=== PATIENT | male | born 1940 | race African-American/Black ===

== ENCOUNTER → 2016-09-11 | Outpatient (CLI) | payer MEDICARE, OTHER ==
[2016-09-11 14:27] LABS: ABSOLUTE BASOPHILS # (AUTO) 0.2 10^3/uL (0.0-0.2); ABSOLUTE EOSINOPHILS # (AUTO) 0.5 10^3/uL (0.0-0.6); ABSOLUTE LYMPHOCYTES (AUTO) 3.4 10^3/uL (0.5-4.7); ABSOLUTE NEUT (AUTO) 6.9 10^3/uL (1.7-8.2); BASOPHILS % (AUTO) 1.4 % (0-2); HEMATOCRIT 41.5 % (37.9-51.0); HEMOGLOBIN 13.6 g/dL (13.5-17.0); HGB HCT DIFFERENCE -0.7; LYMPHOCYTES % (AUTO) 28.3 % (13-45); MEAN CORPUSCULAR HEMOGLOBIN 29.3 pg (27.0-33.4); MEAN CORPUSCULAR HGB CONC 32.9 g/dL (32.0-36.0); MEAN CORPUSCULAR VOLUME 89 fl (80-97); MONOCYTES % (AUTO) 8.7 % (3-13); RED BLOOD COUNT 4.66 10^6/uL (4.35-5.55); RED CELL DISTRIBUTION WIDTH 15.1 % (11.5-14.0); SEGMENTED NEUTROPHILS % (AUTO) 57.6 % (42-78)
[2016-09-11 14:43] LABS: ALANINE AMINOTRANSFERASE 43 U/L (21-72); ALBUMIN 4.3 g/dL (3.5-5.0); ALKALINE PHOSPHATASE 96 U/L (38-126); AMYLASE 116 U/L (30-110); ANION GAP 14 (5-19); ASPARTATE AMINO TRANSFERASE 34 U/L (17-59); BILIRUBIN,TOTAL 0.7 mg/dL (0.2-1.3); BLOOD UREA NITROGEN 35 mg/dL (7-20); CALCIUM 9.7 mg/dL (8.4-10.2); CARBON DIOXIDE 25 mmol/L (22-30); CHLORIDE 102 mmol/L (98-107); CREATININE RESULT 2.11 mg/dL (0.52-1.25); GLUCOSE 109 mg/dL (75-110); LIPASE 164.5 U/L (23-300); POTASSIUM 4.5 mmol/L (3.6-5.0); SODIUM 140.5 mmol/L (137-145); TOTAL PROTEIN 7.3 g/dL (6.3-8.2)
== END ==
LOC: OD 13:40
PROVIDERS: ATTEND Specialist
DX: R10.9 Unspecified abdominal pain (principal); R11.2 Nausea with vomiting, unspecified; D50.9 Iron deficiency anemia, unspecified
CPT/HCPCS: 36415; 80053; 82150; 83690; 85025

== ENCOUNTER → 2016-09-11 | Outpatient (CLI) | payer MEDICARE, OTHER | LOC: OD 13:15 | PROVIDERS: ATTEND Specialist | DX: R10.9 Unspecified abdominal pain (principal) | CPT/HCPCS: 74022 ==

== ENCOUNTER → 2016-09-18 | Outpatient (CLI) | payer MEDICARE, OTHER ==
[2016-09-18 14:40] LABS: ABSOLUTE BASOPHILS # (AUTO) 0.1 10^3/uL (0.0-0.2); ABSOLUTE EOSINOPHILS # (AUTO) 0.2 10^3/uL (0.0-0.6); ABSOLUTE LYMPHOCYTES (AUTO) 1.8 10^3/uL (0.5-4.7); ABSOLUTE MONOCYTES (AUTO) 0.9 10^3/uL (0.1-1.4); ABSOLUTE NEUT (AUTO) 7.3 10^3/uL (1.7-8.2); BASOPHILS % (AUTO) 0.9 % (0-2); EOSINOPHILS % (AUTO) 2.3 % (0-6); HEMATOCRIT 42.6 % (37.9-51.0); HGB HCT DIFFERENCE -0.6; LYMPHOCYTES % (AUTO) 17.3 % (13-45); MEAN CORPUSCULAR HEMOGLOBIN 28.9 pg (27.0-33.4); MEAN CORPUSCULAR HGB CONC 32.8 g/dL (32.0-36.0); MEAN CORPUSCULAR VOLUME 88 fl (80-97); MONOCYTES % (AUTO) 8.6 % (3-13); RED BLOOD COUNT 4.84 10^6/uL (4.35-5.55); RED CELL DISTRIBUTION WIDTH 14.3 % (11.5-14.0); SEGMENTED NEUTROPHILS % (AUTO) 70.9 % (42-78); WHITE BLOOD COUNT 10.3 10^3/uL (4.0-10.5)
[2016-09-18 15:03] LABS: LIPASE 246.8 U/L (23-300)
== END ==
LOC: OD 13:23
PROVIDERS: ATTEND Specialist
DX: R10.9 Unspecified abdominal pain (principal); R53.83 Other fatigue; R74.0 Nonspecific elevation of levels of transaminase and lactic acid dehydrogenase [LDH]
CPT/HCPCS: 36415; 82150; 83690; 85025

== ENCOUNTER → 2016-09-20 | Outpatient (CLI) | payer MEDICARE, OTHER | LOC: RAD 07:18 | PROVIDERS: ATTEND Specialist | DX: R11.11 Vomiting without nausea (principal); R19.01 Right upper quadrant abdominal swelling, mass and lump | CPT/HCPCS: 74247 ==

== ENCOUNTER 2016-09-23 15:47 | Emergency (ER) | payer MEDICARE, OTHER ==
[2016-09-23 16:13] VITALS: BP 130/87
--- NOTE | 2016-09-23 16:19 | ER Document Report ---
ED Medical Screen (RME) - General Stated Complaint: FALL,LEFT MIDDLE FINGER PAIN Mode of Arrival: Ambulatory Information source: Patient Notes: 76 y/o M presents to ED c/o left 3rd finger pain s/p fall. Reports tripped and fell over three steps. States struck his head but denies loc. Reports initially noted deformity to finger but seems to have improved. Denies head or neck pain. I have greeted and performed a rapid initial assessment of this patient. A comprehensive ED assessment and evaluation of the patient, analysis of test results and completion of the medical decision making process will be conducted by additional ED providers. TRAVEL OUTSIDE OF THE [place] IN LAST 30 DAYS: No - Related Data Allergies/Adverse Reactions: No Known Allergies Allergy (Verified 09/23/16 16:14) Past Medical History - Past Medical History Cardiac Medical History: Reports: Hx Coronary Artery Disease, Hx Hypertension Denies: Hx Heart Attack Pulmonary Medical History: Denies: Hx Asthma, Hx Bronchitis, Hx COPD, Hx Pneumonia Neurological Medical History: Denies: Hx Cerebrovascular Accident, Hx Seizures GI Medical History: Reports: Hx Hiatal Hernia. Denies: Hx Hepatitis, Hx Ulcer - DIVERTICULITIS Musculoskeltal Medical History: Reports Hx Arthritis Infectious Medical History: Denies: Hx Hepatitis Past Surgical History: Reports: Hx Pacemaker - INSERTED ABT 5 MONTHS/ NOT WORKING LIKE . Denies: Hx Open Heart Surgery - Immunizations Hx Diphtheria, Pertussis, Tetanus Vaccination: Yes Physical Exam - Vital signs Vitals: Temp Pulse Resp BP Pulse Ox 97.9 F 108 H 18 130/87 H 97 09/23/16 16:10 09/23/16 16:10 09/23/16 16:10 09/23/16 16:10 09/23/16 16:10 - General General appearance: Appears well, Alert In distress: None - Neurological Neuro grossly intact: Yes Cognition: Normal Orientation: AAOx4 [place] Coma Scale Eye Opening: Spontaneous [place] Coma Scale Verbal: Oriented Tal Coma Scale Motor: Obeys Commands Tal Coma Scale Total: 15 Speech: Normal Motor strength normal: LUE, RUE, LLE, RLE Sensory: Normal Course - Vital Signs Vital signs: Temp Pulse Resp BP Pulse Ox 97.9 F 108 H 18 130/87 H 97 09/23/16 16:10 09/23/16 16:10 09/23/16 16:10 09/23/16 16:10 09/23/16 16:10
--- NOTE | 2016-09-23 17:49 | ER Document Report ---
ED Fall - General Mode of Arrival: Ambulatory Information source: Patient TRAVEL OUTSIDE OF THE [place] IN LAST 30 DAYS: No - HPI Patient complains to provider of: Fall and possible dislocated left third digit Occurred: Just prior to arrival Where: Home Context: Tripped Associated symptoms: Other - see above. denies: Lost consciousness Location of injury/pain: Other - see above - General Chief Complaint: Fall Stated Complaint: FALL,LEFT MIDDLE FINGER PAIN Notes: 76 year old male presents to the ED secondary to falling down 3 brick steps and landing on his right hand and forearm just prior to arrival. Patient states that he caught himself with his right arm, but did manage to hit the right aspect of his head when falling. Patient denies losing consciousness. Patient states that his left 3rd digit appeared to be dislocated, but was relocated on it's own. Patient is additionally complaining of abrasions to the right forearm and wrist and pain with swelling to the left third digit. Patient denies any neck pain. Patient's last tetanus shot was within the past 5 years. (LIONEL SHAW ) - Related data Allergies/Adverse Reactions: No Known Allergies Allergy (Verified 09/23/16 16:14) Past Medical History - General Information source: Patient - Social History Smoking Status: Never Smoker Chew tobacco use (# tins/day): No Frequency of alcohol use: None Drug Abuse: None Family History: Reviewed & Not Pertinent Patient has suicidal ideation: No Patient has homicidal ideation: No - Past Medical History Cardiac Medical History: Reports: Hx Coronary Artery Disease, Hx Hypertension GI Medical History: Reports: Hx Hiatal Hernia Musculoskeltal Medical History: Reports Hx Arthritis Past Surgical History: Reports: Hx Pacemaker - INSERTED ABT 5 MONTHS/ NOT WORKING LIKE - Immunizations Hx Diphtheria, Pertussis, Tetanus Vaccination: Yes Hx Pneumococcal Vaccination: 07/28/11 Review of Systems - Review of Systems Constitutional: No symptoms reported EENT: No symptoms reported Cardiovascular: No symptoms reported Respiratory: No symptoms reported Gastrointestinal: No symptoms reported Genitourinary: No symptoms reported Male Genitourinary: No symptoms reported Musculoskeletal: See HPI, Other - right third digit pain and swelling. denies: Neck pain Skin: See HPI, Other - abrasion to the right forearm and wrist Hematologic/Lymphatic: No symptoms reported Neurological/Psychological: No symptoms reported -: Yes All other systems reviewed and negative Physical Exam - General General appearance: Alert In distress: None - HEENT Head: Other - abrasion and contision to the right temporal region. No: Normocephalic, Atraumatic Eyes: Other - abrasion to the right lateral orbit. No: Normal Extraocular movements intact: Yes Pupils: PERRL - Respiratory Respiratory status: No respiratory distress Breath sounds: Normal - Cardiovascular Rhythm: Regular Heart sounds: Normal auscultation - Abdominal Inspection: Normal - Back Back: Normal, Nontender - Extremities General upper extremity: No: Normal inspection - see hand and elbow exam below General lower extremity: Normal inspection, Normal ROM Elbow: Abrasion - right elbow. No: Normal Hand: Abrasion - right hand, Other - Tenderness and swelling to the third left MCP joint. FROM with pain. Good perfusion and sensation distally.. No: Normal - Neurological Neuro grossly intact: Yes Cognition: Normal Orientation: AAOx4 [place] Coma Scale Eye Opening: Spontaneous [place] Coma Scale Verbal: Oriented [place] Coma Scale Motor: Obeys Commands Tal Coma Scale Total: 15 Speech: Normal - Psychological Associated symptoms: Normal affect, Normal mood - Skin Skin Temperature: Warm Skin Moisture: Dry Skin Color: Normal Skin irregularity: other - see extremity exam above - Vital signs Vitals: Temp Pulse Resp BP Pulse Ox 97.9 F 108 H 18 130/87 H 97 09/23/16 16:10 09/23/16 16:10 09/23/16 16:10 09/23/16 16:10 09/23/16 16:10 (TANIA LARIOS) Course - Re-evaluation Re-evalutation: 09/23/16 17:50 I personally performed the services described in the documentation, reviewed and edited the documentation which was dictated to my scribe in my presence, and it accurately records my words and actions. Patient presents emergency from status post mechanical trip and fall. Struck the right side of his head right elbow no loss of consciousness no headache neck pain blurred vision double vision chest pain elbow doesn't hurt he has a small abrasion over that area he says the left finger on the left third digit on the left hand initially appeared to be sideways like it was dislocated and when he opened his hand it appeared to pop back into place. He has pain over the MCP joint there is a CT the head is negative there's no fracture dislocation of the third digit. Full range of motion with normal X extension and flexion of the tendon. At this point in time patient will be placed into a splint he has adequate pain control home and follow primary care physician in 2- 3 days and discussed reasons for ED return sooner (TANIA LARIOS) - Vital Signs Vital signs: Temp Pulse Resp BP Pulse Ox 97.9 F 108 H 18 130/87 H 97 09/23/16 16:10 09/23/16 16:10 09/23/16 16:10 09/23/16 16:10 09/23/16 16:10 (TANIA LARIOS) (LIONEL SHAW) Discharge - Discharge Clinical Impression: sprained digit left third mcp joint, Abrasions of multiple sites Minor head injury Qualifiers: Encounter type: initial encounter Qualified Code(s): S00.90XA - Unspecified superficial injury of unspecified part of head, initial encounter Additional Instructions: SPRAIN: Your injury is a sprain. A sprain results from stretching or tearing of the ligaments, usually from a twisting injury. The ligaments will require time and protection in order to heal properly. Many sprains are quite disabling and should be taken seriously. The usual initial treatment of sprains is cold packs, elevation, and rest of the injured area. Your physician has assessed the seriousness of your ligament injury, and has outlined a treatment plan. Understand that this treatment may change, depending on how you progress. If a re-examination was recommended, it is important that you follow up as instructed. Call the doctor any time if there is severe pain, numbness, or loss of function in the injured area. SPLINT PRECAUTIONS: A splint has been placed. This will protect the area while healing begins. Your problem does NOT normally require a cast. It MUST, however, be held still! Keep the splint on ALL THE TIME until instructed to remove it by the doctor. As you begin to use the area, be careful. You shouldn't do anything which causes discomfort -- you may disturb the injury even with the splint in place. After the initial period of rest and elevation, if splint does not prevent pain when you move, come back. You may require placement of a different splint , or a cast. If there is unexpected severe pain, or numbness, discoloration, or swelling beyond the splint, you should return at once. If you feel that the splint has broken or become loose, come back. ICE & ELEVATION: Apply ice packs frequently against the painful area. Many different schedules are recommended, such as "20 minutes on, 20 minutes off" or "one hour ice, two hours rest." If you need to work, you may need to go longer between ice treatments. You should plan to have the area ice packed AT LEAST one- fourth of the time. The ice should be applied over the wrap, tape, or splint, or over a layer of cloth -- not directly against the skin. Some ice bags have a built-in cloth and can be put directly on the skin. Your injured part should be elevated as much as possible over the next 48 hours. Try to keep the injury above the level of the heart. Avoid use of the injured area. Elevation and rest will decrease the swelling. 15-adult 400 mg (2 tab) 600 mg (3 tab) FOLLOW-UP CARE: If you have been referred to a physician for follow-up care, call the physician s office for an appointment as you were instructed or within the next two days. If you experience worsening or a significant change in your symptoms, notify the physician immediately or return to the Emergency Department at any time for re-evaluation. Abrasions An abrasion is a scraping injury of the skin. Some scarring may result. The seriousness of an abrasion is not always obvious at first. Hidden tissue damage may be present and infection may occur despite proper care. Complete healing may take from ten days to as long as a month. The healing time depends on the depth of the abrasion, and on the amount of crushing of underlying tissues from the injury. Keep the wound and dressing clean. Do not shower or bathe the area until okayed by the doctor. If the dressing gets wet, remove it and blot the wound dry, then reapply a clean dressing. Dressings should be changed every day. Sunscreen should be used for six months after the skin is healed. If any signs of infection occur (swelling, redness, increasing tenderness, red streaks, profuse purulent drainage from the abrasion, tender lumps in the armpit or groin above the abrasion, or fever), see the doctor immediately. Head Injury Your child's examination shows no evidence of brain injury. The child can therefore be safely observed at home. Give clear liquids only for the first eight hours. Acetaminophen or ibuprofen can safely be given for pain. Follow the directions on the bottle. Do not give any medication that may alter her/his level of alertness. Limit activity for the first 24 hours -- bed rest is advisable at first. Several times during the first 24 hours, check the patient to see if the pupils are equal in size to each other, that the patient is easily arousable, and responds normally. Contact your doctor or go to the hospital if any of the following things occur: Persistent or projectile vomiting, a seizure, confusion , unequal pupil size, difficulty in arousing the patient, worsening or continued headache, or failure to improve as expected. Follow-up with your primary care physician in 2-3 days return for increasing worsening or new symptoms Scribe Documentation - Scribe Written by Siddhartha:: Siddhartha Sanders, 09/23/2016 [id number] acting as scribe for :: Augusto
== END 2016-09-23 18:03 | disposition home or self-care (01) ==
LOC: ER 15:47
DX: S63.653A Sprain of metacarpophalangeal joint of left middle finger, initial encounter (principal); S00.90XA Unspecified superficial injury of unspecified part of head, initial encounter; M79.645 Pain in left finger(s); W19.XXXA Unspecified fall, initial encounter
CPT/HCPCS: 70450; 99284

== ENCOUNTER → 2016-09-23 | Outpatient (CLI) | payer MEDICARE, OTHER | LOC: RAD 14:08 | PROVIDERS: ATTEND Internal Medicine Medical Oncology | DX: R93.5 Abnormal findings on diagnostic imaging of other abdominal regions, including retroperitoneum (principal); M48.04 Spinal stenosis, thoracic region; D72.828 Other elevated white blood cell count | CPT/HCPCS: 72128; 82565 ==

== ENCOUNTER 2016-10-17 09:32 | Day surgery (SDC) | payer MEDICARE, OTHER ==
[2016-10-17 10:11] LABS: HEMATOCRIT 41.4 % (37.9-51.0); HEMOGLOBIN 13.3 g/dL (13.5-17.0); HGB HCT DIFFERENCE -1.5; MEAN CORPUSCULAR HEMOGLOBIN 28.6 pg (27.0-33.4); MEAN CORPUSCULAR HGB CONC 32.1 g/dL (32.0-36.0); MEAN CORPUSCULAR VOLUME 89 fl (80-97); RED BLOOD COUNT 4.65 10^6/uL (4.35-5.55); RED CELL DISTRIBUTION WIDTH 13.8 % (11.5-14.0); WHITE BLOOD COUNT 11.3 10^3/uL (4.0-10.5)
[2016-10-17 10:21] LABS: PARTIAL THROMBOPLASTIN TIME 31.4 SEC (23.5-35.8)
[2016-10-17 10:31] LABS: BLOOD UREA NITROGEN 29 mg/dL (7-20); CREATININE RESULT 1.57 mg/dL (0.52-1.25)
[2016-10-17] MEDS ORDERED: MIDAZOLAM 2 MG/2 ML INJ ONE (12:29)
[2016-10-17] MEDS ORDERED: FENTANYL CITRATE INJ/PF 100 MCG/2 ML AMPUL ONE (12:30)
[2016-10-17 16:12] VITALS: BP 129/80
== END 2016-10-17 15:55 | disposition home or self-care (01) ==
LOC: RAD 09:32
PROVIDERS: ATTEND Internal Medicine Medical Oncology
PROC: 0KBF3ZX Excision of Right Trunk Muscle, Percutaneous Approach, Diagnostic (ICD-10-PCS; principal; 2016-10-17)
DX: R93.5 Abnormal findings on diagnostic imaging of other abdominal regions, including retroperitoneum (principal); Z79.01 Long term (current) use of anticoagulants
CPT/HCPCS: 36415; 84520; 82565; 85027; 85610; 85730; 88305 ×2; 71010; 77012; 20206; J2250; J3010

== ENCOUNTER 2016-11-02 15:42 | Emergency (ER) | payer MEDICARE, OTHER ==
--- NOTE | 2016-11-02 16:11 | ER Document Report ---
ED Dizziness/Weakness - General Time seen by provider: 16:15 Mode of Arrival: Wheelchair Information source: Patient TRAVEL OUTSIDE OF THE [place] IN LAST 30 DAYS: No - HPI Onset: Other - see HPI note <TRINITY READ - Last Filed: 11/02/16 16:52> <JAKE LUCIO - Last Filed: 11/02/16 20:05> - General Chief Complaint: Weakness Stated Complaint: WEAKNESS,CONFUSION Notes: Patient is a 76 year old male presenting to the emergency department for weakness. Patient states he has had increased weakness, difficulty ambulating, and dizziness for the last 5 days. Patient was at his pain management doctor today and was sent to the emergency department for "possible fluid on lungs." Patient states his breathing has been uneasy and he has moments where he almost stops breathing like sleep apnea. Patient is also out of his 25 mb Spironolactone which is prescribed by [facility]; patient states he misplaced the bottle of medication and has not been taking it for a week or so. Patient saw [facility] in July and has a follow up appointment in November; patient is being evaluated at [facility] to be a potential candidate for a left ventricular assist device. The patient has a pacemaker and defibrillator. Patient also has history of CHF. Patient's primary care physician is Dr. Hernandez. (TRINITY READ) - Related Data Allergies/Adverse Reactions: No Known Allergies Allergy (Verified 11/02/16 15:50) Past Medical History - General Information source: Patient - Social History Smoking Status: Current Every Day Smoker Family History: None Patient has suicidal ideation: No Patient has homicidal ideation: No - Past Medical History Cardiac Medical History: Reports: Hx Coronary Artery Disease, Hx Hypertension GI Medical History: Reports: Hx Diverticulitis, Hx Hiatal Hernia Musculoskeltal Medical History: Reports Hx Arthritis Past Surgical History: Reports: Hx Pacemaker - INSERTED ABT 5 MONTHS/ NOT WORKING LIKE - Immunizations Hx Diphtheria, Pertussis, Tetanus Vaccination: Yes Hx Pneumococcal Vaccination: 07/28/11 <TRINITY READ - Last Filed: 11/02/16 16:52> Review of Systems - Review of Systems Constitutional: No symptoms reported EENT: No symptoms reported Cardiovascular: No symptoms reported Respiratory: No symptoms reported Gastrointestinal: No symptoms reported Genitourinary: No symptoms reported Male Genitourinary: No symptoms reported Musculoskeletal: No symptoms reported Skin: No symptoms reported Hematologic/Lymphatic: No symptoms reported Neurological/Psychological: No symptoms reported -: Yes All other systems reviewed and negative <TRINITY READ - Last Filed: 11/02/16 16:52> Physical Exam - Vital signs Interpretation: Normal <TRINITY READ - Last Filed: 11/02/16 16:52> <JAKE LUCIO - Last Filed: 11/02/16 20:05> - Vital signs Vitals: Temp Pulse Resp BP Pulse Ox 98.2 F 81 20 124/72 95 11/02/16 15:48 11/02/16 15:48 11/02/16 15:48 11/02/16 15:48 11/02/16 15:48 - Notes Notes: GENERAL: Mildly somnolent, well-appearing, well-nourished and in no acute distress. HEAD: Atraumatic, normocephalic. EYES: Pupils equal round and reactive to light, extraocular movements intact, sclera anicteric, conjunctiva are normal. ENT: Nares patent. Moist mucous membranes. Patent airway. NECK: Normal range of motion, supple without lymphadenopathy. LUNGS: Rales at the bases, decreased air movement. HEART: Regular rate and rhythm, systolic murmur. ABDOMEN: Protuberant abdomen, ventral hernia, No guarding, no rebound. No masses appreciated. EXTREMITIES: Normal range of motion, no pitting or edema. NEUROLOGICAL: No focal neurological deficits. Moves all extremities spontaneously and on command. PSYCH: Normal affect. Normal mood. SKIN: Warm, Dry, normal turgor, no rashes or lesions noted. (TRINITY READ) Course <TRINITY READ - Last Filed: 11/02/16 16:52> - Laboratory Result Diagrams: 11/02/16 16:45 11/02/16 16:45 - Diagnostic Test Radiology reviewed: Image reviewed - Nothing acute, Reports reviewed - EKG Interpretation by Me EKG shows normal: Sinus rhythm Rate: Normal Rhythm: NSR <JAKE LUCIO - Last Filed: 11/02/16 20:05> - Re-evaluation Re-evalutation: 11/02/16 17:36 Patient's creatinine is actually improved now down to 1.83. His elevated white count from 2 months ago is normal now at 10.1. 11/02/16 19:58 I discussed all findings with the patient and family at his request. His numbers actually better than normal and there are no signs of CHF. There is probably some consideration for his excessive somnolence as he is not using his CPAP and has a history of obstructive sleep apnea. Family is comfortable taking the patient home. He does have follow-up at [facility] in the next month but I encouraged him to see his primary care doctor in the meantime. (JAKE LUCIO) - Vital Signs Vital signs: Temp Pulse Resp BP Pulse Ox 98.2 F 81 20 124/72 95 11/02/16 15:48 11/02/16 15:48 11/02/16 15:48 11/02/16 15:48 11/02/16 15:48 - Laboratory Laboratory results interpreted by me: 11/02/16 11/02/16 11/02/16 16:45 16:45 16:48 Hgb 12.6 L ABG pO2 BUN 24 H Creatinine 1.83 H Est GFR ( Amer) 44 L Est GFR (Non-Af Amer) 36 L Urine Protein 30 H 11/02/16 17:50 Hgb ABG pO2 71.2 L BUN Creatinine Est GFR ( Amer) Est GFR (Non-Af Amer) Urine Protein - EKG Interpretation by Me Additional EKG results interpreted by me: 11/02/16 19:58 Nonspecific T-wave abnormalities with some flattening and inversion more laterally (JAKE LUCIO) Discharge <TRINITY READ - Last Filed: 11/02/16 16:52> <JAKE LUCIO - Last Filed: 11/02/16 20:05> - Discharge Clinical Impression: Generalized weakness, Dyspnea Condition: Good Disposition: HOME, SELF-CARE Instructions: Weakness ([facility]) Additional Instructions: Call Friday to arrange close follow-up with her primary care physician. He need to discuss getting back on your CPAP as well, considering another mask or nasal pillows if needed. Return for worsening or concern. Prescriptions: Spironolactone 25 mg PO DAILY #30 tablet Referrals: RUTH SEGUNDO MD [Primary Care Provider] - Follow up in 3-5 days Scribe Attestation: 11/02/16 19:59 I personally performed the services described in the documentation, reviewed and edited the documentation which was dictated to the scribe in my presence, and it accurately records my words and actions. (JAKE LUCIO) Scribe Documentation - Scribe Written by Siddhartha:: Trinity Read 11/02/16 4:30 acting as scribe for :: Yin <TRINITY READ - Last Filed: 11/02/16 16:52>
[2016-11-02 17:17] LABS: ABSOLUTE BASOPHILS # (AUTO) 0.1 10^3/uL (0.0-0.2); ABSOLUTE EOSINOPHILS # (AUTO) 0.5 10^3/uL (0.0-0.6); ABSOLUTE LYMPHOCYTES (AUTO) 2.8 10^3/uL (0.5-4.7); ABSOLUTE NEUT (AUTO) 5.7 10^3/uL (1.7-8.2); BASOPHILS % (AUTO) 0.5 % (0-2); EOSINOPHILS % (AUTO) 4.6 % (0-6); HEMATOCRIT 38.4 % (37.9-51.0); HEMOGLOBIN 12.6 g/dL (13.5-17.0); HGB HCT DIFFERENCE -0.6; LYMPHOCYTES % (AUTO) 27.7 % (13-45); MEAN CORPUSCULAR HEMOGLOBIN 28.8 pg (27.0-33.4); MEAN CORPUSCULAR HGB CONC 32.8 g/dL (32.0-36.0); MEAN CORPUSCULAR VOLUME 88 fl (80-97); MONOCYTES % (AUTO) 10.3 % (3-13); RED BLOOD COUNT 4.38 10^6/uL (4.35-5.55); RED CELL DISTRIBUTION WIDTH 13.8 % (11.5-14.0); SEGMENTED NEUTROPHILS % (AUTO) 56.9 % (42-78); WHITE BLOOD COUNT 10.1 10^3/uL (4.0-10.5)
[2016-11-02 17:19] LABS: PROTHROMBIN TIME 12.3 SEC (11.4-15.4)
[2016-11-02 17:23] LABS: APPEARANCE,URINE SLIGHTLY-CLOUDY; BILIRUBIN,URINE NEGATIVE (NEGATIVE); GLUCOSE, URINE NEGATIVE (NEGATIVE); KETONES,URINE NEGATIVE (NEGATIVE); LEUKOCYTE ESTERASE,URINE NEGATIVE (NEGATIVE); NITRITE,URINE NEGATIVE (NEGATIVE); PROTEIN,URINE 30 mg/dL (NEGATIVE); URINE SPECIFIC GRAVITY 1.018; UROBILINOGEN,URINE NEGATIVE mg/dL (<2.0)
[2016-11-02 17:30] LABS: ALANINE AMINOTRANSFERASE 39 U/L (21-72); ALBUMIN 4.1 g/dL (3.5-5.0); ALKALINE PHOSPHATASE 103 U/L (38-126); ANION GAP 12 (5-19); ASPARTATE AMINO TRANSFERASE 41 U/L (17-59); BILIRUBIN,DIRECT 0.3 mg/dL (0.0-0.4); BILIRUBIN,TOTAL 0.5 mg/dL (0.2-1.3); BLOOD UREA NITROGEN 24 mg/dL (7-20); CALCIUM 9.3 mg/dL (8.4-10.2); CARBON DIOXIDE 26 mmol/L (22-30); CHLORIDE 105 mmol/L (98-107); CREATININE RESULT 1.83 mg/dL (0.52-1.25); GLUCOSE 104 mg/dL (75-110); MAGNESIUM 1.8 mg/dL (1.6-2.3); POTASSIUM 4.8 mmol/L (3.6-5.0); SODIUM 143.1 mmol/L (137-145)
[2016-11-02 17:42] LABS: TROPONIN I < 0.012 ng/mL
[2016-11-02 18:08] LABS: ARTERIAL BLOOD BASE EXCESS 0.3 mmol/L; ARTERIAL BLOOD O2 SATURATION 94.3 % (94-98)
[2016-11-02] MEDS ORDERED: SPIRONOLACTONE 25 MG TABLET PO ONE (19:57)
[2016-11-02 20:16] VITALS: BP 120/68
--- NOTE | 2016-11-02 20:46 | EKG REPORT ---
SEVERITY:- ABNORMAL ECG - SINUS RHYTHM NONSPECIFIC T ABNORMALITIES, LATERAL LEADS : Confirmed by: Rita Minaya 02-Nov-2016 20:45:40
== END 2016-11-02 20:15 | disposition home or self-care (01) ==
LOC: ER 15:42
DX: R53.1 Weakness (principal); R06.00 Dyspnea, unspecified; R41.0 Disorientation, unspecified; R42 Dizziness and giddiness; Z79.899 Other long term (current) drug therapy; F17.200 Nicotine dependence, unspecified, uncomplicated
CPT/HCPCS: 93005; 99285; 36415; 82803; 83735; 85025; 85610; 80053; 81001; 84484; 83880; 71020; 93010; 36600; A9270

== ENCOUNTER → 2017-05-27 | Outpatient (CLI) | payer MEDICARE, OTHER ==
[2017-05-27 11:30] LABS: HEMATOCRIT 41.9 % (37.9-51.0); HEMOGLOBIN 13.8 g/dL (13.5-17.0); HGB HCT DIFFERENCE -0.5; MEAN CORPUSCULAR HEMOGLOBIN 29.7 pg (27.0-33.4); MEAN CORPUSCULAR HGB CONC 32.9 g/dL (32.0-36.0); MEAN CORPUSCULAR VOLUME 90 fl (80-97); RED BLOOD COUNT 4.64 10^6/uL (4.35-5.55); RED CELL DISTRIBUTION WIDTH 14.3 % (11.5-14.0); WHITE BLOOD COUNT 13.8 10^3/uL (4.0-10.5)
[2017-05-27 11:32] LABS: APPEARANCE,URINE CLEAR; BILIRUBIN,URINE NEGATIVE (NEGATIVE); GLUCOSE, URINE NEGATIVE (NEGATIVE); KETONES,URINE NEGATIVE (NEGATIVE); LEUKOCYTE ESTERASE,URINE NEGATIVE (NEGATIVE); NITRITE,URINE NEGATIVE (NEGATIVE); PROTEIN,URINE NEGATIVE (NEGATIVE); URINE SPECIFIC GRAVITY 1.017
[2017-05-27 11:42] LABS: ALBUMIN 4.2 g/dL (3.5-5.0); ANION GAP 12 (5-19); BLOOD UREA NITROGEN 26 mg/dL (7-20); CARBON DIOXIDE 26 mmol/L (22-30); CHLORIDE 106 mmol/L (98-107); CREATININE RESULT 1.25 mg/dL (0.52-1.25); GLUCOSE 132 mg/dL (75-110); SODIUM 144.3 mmol/L (137-145); TOTAL PROTEIN 6.5 g/dL (6.3-8.2)
[2017-05-27 11:43] LABS: ALANINE AMINOTRANSFERASE 40 U/L (21-72); ALKALINE PHOSPHATASE 111 U/L (38-126); ASPARTATE AMINO TRANSFERASE 24 U/L (17-59); BILIRUBIN,DIRECT 0.4 mg/dL (0.0-0.4); BILIRUBIN,TOTAL 0.4 mg/dL (0.2-1.3); CALCIUM 9.5 mg/dL (8.4-10.2)
[2017-05-27 12:17] LABS: BASOPHILS % (MANUAL) 0 % (0-2); EOSINOPHILS % (MANUAL) 1 % (0-6); LYMPHOCYTES % (MANUAL) 20 % (13-45); PLATELET CLUMPS PRESENT; POLYCHROMASIA SLIGHT; TOTAL CELLS COUNTED 100; TOXIC VACUOLATION PRESENT
--- NOTE | 2017-05-27 13:45 | RADIOLOGY REPORT (SQ) ---
EXAM DESCRIPTION: U/S ABDOMEN COMPLETE W/O DOP COMPLETED DATE/TIME: 05/27/2017 1:21 pm REASON FOR STUDY: FATTY LIVER (K76.0), CKD III (N18.3) K76.0 FATTY (CHANGE OF) LIVER, NOT ELSEWHERE CLASSIFIED N18.3 CHRONIC KIDNEY DISEASE, STAGE 3 (MODERATE) COMPARISON: None. TECHNIQUE: Dynamic and static grayscale images acquired of the abdomen and recorded on PACS. Additio nal selected color Doppler and spectral images recorded. LIMITATIONS: None. FINDINGS: PANCREAS: Not visualized LIVER: Fatty infiltration. Hepatomegaly. 20.4 cm. No masses. LIVER VASCULATURE: Normal directional flow of the main portal vein and hepatic veins. GALLBLADDER: Surgically absent. ULTRASOUND-DETECTED RAMSEY'S SIGN: Negative. INTRAHEPATIC DUCTS AND COMMON DUCT: No abnormal dilatation INFERIOR VENA CAVA: Normal flow. AORTA: No aneurysm. RIGHT KIDNEY: Normal size. Normal echogenicity. No solid or suspicious masses. No hydronephros is. No calcifications. LEFT KIDNEY: Normal size. Normal echogenicity. No solid or suspicious masses. No hydronephrosi s. No calcifications. SPLEEN: Normal size. No solid masses. PERITONEAL AND PLEURAL SPACES: No ascites or effusions. OTHER: Complex fluid collection mid abdomen at the site of previous hernia repair. 14.1 x 16.1 x 10. 4 cm. IMPRESSION: Large complex fluid collection anterior abdominal wall at the site of previous hernia re pair. Hepatomegaly. Fatty infiltration of the liver. Status post cholecystectomy. Pancreas not vi sualized. TECHNICAL DOCUMENTATION: JOB ID: [id number] [employer]- All Rights Reserved
== END ==
LOC: RAD 10:14
PROVIDERS: ATTEND Internal Medicine Nephrology
DX: I12.9 Hypertensive chronic kidney disease with stage 1 through stage 4 chronic kidney disease, or unspecified chronic kidney disease (principal); N18.3 Chronic kidney disease, stage 3 (moderate); I50.9 Heart failure, unspecified; K76.0 Fatty (change of) liver, not elsewhere classified
CPT/HCPCS: 36415; 76700; 80053; 81001; 85025

== ENCOUNTER 2017-07-27 04:34 | Inpatient (IN) | payer MEDICARE, OTHER ==
--- NOTE | 2017-07-27 04:48 | ER Document Report ---
ED Respiratory Problem <JOSE NELSON - Last Filed: 07/27/17 07:35> - General TRAVEL OUTSIDE OF THE [place] IN LAST 30 DAYS: No <THEO OVERTON - Last Filed: 07/28/17 01:43> - General Chief Complaint: Shortness Of Breath Stated Complaint: RESPIRATORY DISTRESS Time Seen by Provider: 07/27/17 04:38 Notes: The patient is a 77-year-old male, past medical history CHF, current 2 pack per day smoker, presents with 1 month of shortness of breath and wheezing. He has also had cough with green sputum. Patient is taking his amoxicillin that was left over from her prior illness. When EMS arrived, he had diffuse wheezing and was given 5 mg of albuterol and 125 mg of Solu-Medrol with improvement in his shortness of breath and wheezing. Patient has an appointment with Gil[facility] in 2 weeks to discuss LVAD placement. Patient denies fevers, hemoptysis, chest pain, leg swelling, nausea, vomiting, fevers, back pain or abdominal pain. (THEO OVERTON) - Related Data Allergies/Adverse Reactions: No Known Allergies Allergy (Verified 11/02/16 15:50) Home Medications: Current Home Medications Alprazolam [Xanax 0.25 mg Tablet] 0.25 mg PO DAILYP PRN 07/27/17 [History] Amiodarone HCl [Cordarone 200 mg Tablet] 200 mg PO Q12 07/27/17 [History] Aspirin [Aspirin EC] 81 mg PO DAILY 07/27/17 [History] Azelastine HCl 1 spray NAREB Q12 07/27/17 [History] Desonide [Desowen] 1 applic TP BID 07/27/17 [History] Duloxetine HCl [Cymbalta] 60 mg PO DAILY 07/27/17 [History] Fluticasone Propionate [Flonase Nasal [place] 50 Mcg/[place] 16 gm] 1 spray NAREB DAILY 07/27/17 [History] Furosemide [Lasix 40 mg Tablet] 40 mg PO QAM 07/27/17 [History] Latanoprost [Xalatan 0.005% Oph Soln 2.5 ml] 1 drop OU QHS 07/27/17 [History] Metoprolol Succinate [Toprol XL 100 mg Tablet] 100 mg PO DAILY 07/27/17 [History ] Naloxegol Oxalate [Movantik 25 mg Tablet] 25 mg PO DAILY 07/27/17 [History] [place]-3 Fatty Acids/Fish Oil [Fish Oil 1,000 mg Capsule] 1 cap PO DAILY [History] Oxycodone HCl [Oxy-Ir 5 mg Tablet] 10 mg PO Q8HP PRN 07/27/17 [History] Oxycodone HCl [Oxycontin] 40 mg PO Q12HP PRN 07/27/17 [History] Pantoprazole Sodium [Protonix] 40 mg PO DAILY 07/27/17 [History] Pravastatin Sodium [Pravachol] 20 mg PO QHS 07/27/17 [History] Sildenafil Citrate [Viagra] 100 mg PO .ASDIR PRN 07/27/17 [History] Spironolactone [Aldactone 25 mg Tablet] 25 mg PO DAILY 07/27/17 [History] Testosterone [Fortesta] 6 sprays TD QAM 07/27/17 [History] Past Medical History - General Information source: Patient, Emergency Med Personnel - Social History Smoking Status: Current Every Day Smoker - 2 packs/day Family History: None - Past Medical History Cardiac Medical History: Reports: Hx Coronary Artery Disease, Hx Hypercholesterolemia, Hx Hypertension Denies: Hx Heart Attack Pulmonary Medical History: Denies: Hx Asthma, Hx Bronchitis, Hx COPD, Hx Pneumonia Neurological Medical History: Denies: Hx Cerebrovascular Accident, Hx Seizures Renal/ Medical History: Denies: Hx Peritoneal Dialysis GI Medical History: Reports: Hx Diverticulitis, Hx Hiatal Hernia. Denies: Hx Hepatitis, Hx Ulcer - DIVERTICULITIS Musculoskeltal Medical History: Reports Hx Arthritis Infectious Medical History: Denies: Hx Hepatitis Past Surgical History: Reports: Hx Pacemaker - INSERTED ABT 5 MONTHS/ NOT WORKING LIKE . Denies: Hx Open Heart Surgery - Immunizations Hx Diphtheria, Pertussis, Tetanus Vaccination: Yes Hx Pneumococcal Vaccination: 07/28/11 <THEO OVERTON - Last Filed: 07/28/17 01:43> Review of Systems <JOSE NELSON - Last Filed: 07/27/17 07:35> <THEO OVERTON - Last Filed: 07/28/17 01:43> - Review of Systems Notes: REVIEW OF SYSTEMS: CONSTITUTIONAL: -fevers, -chills EENT: -eye pain, -difficulty swallowing, -nasal congestion CARDIOVASCULAR:-chest pain, -syncope. RESPIRATORY: +cough, +SOB GASTROINTESTINAL: -abdominal pain, - nausea, -vomiting, -diarrhea GENITOURINARY: -dysuria, -hematuria MUSCULOSKELETAL: -back pain, -neck pain SKIN: -rash or skin lesions. HEMATOLOGIC: -easy bruising or bleeding. LYMPHATIC: -swollen, enlarged glands. NEUROLOGICAL: -altered mental status or loss of consciousness, -headache, - neurologic symptoms PSYCHIATRIC: -anxiety, -depression. ALL OTHER SYSTEMS REVIEWED AND NEGATIVE. (THEO OVERTON) Physical Exam <JOSE NELSON - Last Filed: 07/27/17 07:35> <THEO OVERTON - Last Filed: 07/28/17 01:43> - Vital signs Vitals: Resp Pulse Ox 22 H 81 L 07/27/17 04:38 07/27/17 04:38 - Notes Notes: PHYSICAL EXAMINATION: GENERAL: Well-appearing, well-nourished and in no acute distress. HEAD: Atraumatic, normocephalic. EYES: Pupils equal round and reactive to light, extraocular movements intact, sclera anicteric, conjunctiva are normal. ENT: nares patent, oropharynx clear without exudates. Moist mucous membranes. NECK: Normal range of motion, supple without lymphadenopathy LUNGS: Mild tachypnea. No wheezing, rales or crackles. HEART: Regular rate and rhythm without murmurs ABDOMEN: Soft, nontender, normoactive bowel sounds. No guarding, no rebound. No masses appreciated. EXTREMITIES: Normal range of motion, no pitting or edema. No cyanosis. NEUROLOGICAL: Cranial nerves grossly intact. Normal speech, normal gait. Normal sensory and motor exams. PSYCH: Normal mood, normal affect. SKIN: Warm, Dry, normal turgor, no rashes or lesions noted. (THEO OVERTON) Course - Laboratory Result Diagrams: 07/27/17 04:55 07/27/17 06:05 <JOSE NELSON - Last Filed: 07/27/17 07:35> - Laboratory Result Diagrams: 07/27/17 04:55 07/27/17 17:30 - Diagnostic Test Radiology reviewed: Image reviewed, Reports reviewed - EKG Interpretation by [facility] EKG shows normal: Sinus rhythm, [place], Intervals, QRS Complexes, ST-T Waves Rate: Normal <THEO OVERTON - Last Filed: 07/28/17 01:43> - Re-evaluation Re-evalutation: 07/27/17 07:35 Troponin is negative, rediscussed with Dr. Brown, aware that he is going to be admitted. (JOSE NELSON) Patient with diffuse wheezing and tachypnea when EMS arrived to the house. He received 2 albuterol treatments and Solu-Medrol prior to arrival with some improvement of his wheezing. His oxygen sats would dip down to the low 80s and he does not wear oxygen at home. Provided him with additional dose of duonebs and placed on 2 L nasal cannula with improvement of his oxygenation. Pt also with crackles in his left lower lobe and a infiltrate seen on x-ray. He was last hospitalized about 6 months ago and lives at home. CAP Abx started. Patient smokes 2 packs of cigarettes a day and has done this for multiple decades. No chest pain and EKG does not show any ischemic changes. Patient requires inpatient admission due to oxygen requirements and further evaluation and treatment of his shortness of breath and pneumonia. His PMD is Dr. Duggan. 07/27/17 05:[address] Baker. If first troponin is negative, will admit patient as Inpatient to [facility]. First CMP and troponin hemolyzed. Pt denies any chest pain and no ischemic changes on EKG. (THEO OVERTON) - Vital Signs Vital signs: Temp Pulse Resp BP Pulse Ox 97.7 F 70 24 H 118/68 95 07/28/17 00:00 07/27/17 22:00 07/28/17 01:24 07/27/17 22:00 07/28/17 01:24 - Laboratory Laboratory results interpreted by me: 07/27/17 04:55 WBC 17.2 H RBC 3.94 L Hgb 11.5 L Hct 35.4 L RDW 14.5 H Abs Neuts (Manual) 13.1 H Abs Basophils (Manual) 0.3 H - Diagnostic Test Radiology results interpreted by pr: CXR: Left basilar consolidation concerning for pneumonia. Continued radiographic follow-up to resolution recommended. (THEO OVERTON) Discharge <JOSE NELSON - Last Filed: 07/27/17 07:35> - Discharge Admitting Provider: Hospitalist - [facility] Admitted: Telemetry <THEO OVERTON - Last Filed: 07/28/17 01:43> - Discharge Clinical Impression: Hypoxia Pneumonia Qualifiers: Pneumonia type: due to unspecified organism Laterality: left Lung location: lower lobe of lung Qualified Code(s): J18.1 - Lobar pneumonia, unspecified organism Condition: Stable Disposition: ADMITTED INPATIENT
[2017-07-27] MEDS ORDERED: IPRATROPIUM/ALBUTEROL 0.5-2.5 MG/3 ML AMPUL NEB ONE (04:55)
--- NOTE | 2017-07-27 05:11 | RADIOLOGY REPORT (SQ) ---
EXAM DESCRIPTION: CHEST SINGLE VIEW CLINICAL HISTORY: SOB COMPARISON: 11/02/2016 FINDINGS: Single frontal view of the chest. Left-sided pacemaker. Postoperative change of the cervical spine. Atherosclerotic calcification aortic arch. Heart is not enlarged. Left basilar consolidation. No pneumothorax or pleural effusion. No displaced rib fractures identified. Upper abdominal soft tissues are unremarkable. IMPRESSION: 1. Left basilar consolidation concerning for pneumonia. Continued radiographic follow-up to resolution recommended.
[2017-07-27 05:13] LABS: VENOUS BLOOD BASE EXCESS -1.8 mmol/L; VENOUS BLOOD HCO3 22.8 mmol/L (20-32); VENOUS BLOOD PCO2 38.3 mmHg (35-63); VENOUS BLOOD PH 7.39 (7.30-7.42)
[2017-07-27 05:16] LABS: HEMATOCRIT 35.4 % (37.9-51.0); HEMOGLOBIN 11.5 g/dL (13.5-17.0); MEAN CORPUSCULAR HEMOGLOBIN 29.1 pg (27.0-33.4); MEAN CORPUSCULAR HGB CONC 32.4 g/dL (32.0-36.0); MEAN CORPUSCULAR VOLUME 90 fl (80-97); PLATELET COUNT 299 10^3/uL (150-450); RED BLOOD COUNT 3.94 10^6/uL (4.35-5.55); RED CELL DISTRIBUTION WIDTH 14.5 % (11.5-14.0); WHITE BLOOD COUNT 17.2 10^3/uL (4.0-10.5)
[2017-07-27] MEDS ORDERED: AZITHROMYCIN INJ 500 MG VIAL IV ONE (05:24)
[2017-07-27] MEDS ORDERED: CEFTRIAXONE 1 GM/D5W RTU 1 GM/50 ML RTUPB IV ONE (05:24)
[2017-07-27 05:43] LABS: ABSOLUTE LYMPHOCYTES# (MANUAL) 3.1 10^3/uL (0.5-4.7); ABSOLUTE MONOCYTES # (MANUAL) 0.7 10^3/uL (0.1-1.4); ABSOLUTE NEUTROPHILS# (MANUAL) 13.1 10^3/uL (1.7-8.2); BAND NEUTROPHILS % (MANUAL) 4 % (3-5); BASOPHILS % (MANUAL) 2 % (0-2); EOSINOPHILS % (MANUAL) 0 % (0-6); LYMPHOCYTES % (MANUAL) 17 % (13-45); MONOCYTES % (MANUAL) 4 % (3-13); NUCLEATED RED BLOOD CELLS 1 /100 WBC (0); SEGMENTED NEUTROPHILS % (MAN) 72 % (42-78); TOTAL CELLS COUNTED 100
[2017-07-27 05:46] LABS: ANISOCYTOSIS SLIGHT; OVALOCYTES SLIGHT; POIKILOCYTOSIS SLIGHT; POLYCHROMASIA SLIGHT; TOXIC GRANULATION 2+; TOXIC VACUOLATION PRESENT
[2017-07-27 05:47] LABS: PLATELET CLUMPS PRESENT; PLATELET COMMENT ADEQUATE; PLATELET LARGE PRESENT
[2017-07-27] MEDS ORDERED: ACETAMINOPHEN 325 MG TABLET PO PRN (06:26)
[2017-07-27] MEDS ORDERED: LEVALBUTEROL HCL NEB 1.25 MG/3 ML AMPUL NEB PRN (06:26)
[2017-07-27 06:46] LABS: ALANINE AMINOTRANSFERASE 38 U/L (21-72); ALBUMIN 3.8 g/dL (3.5-5.0); ALKALINE PHOSPHATASE 80 U/L (38-126); ANION GAP 15 (5-19); ASPARTATE AMINO TRANSFERASE 34 U/L (17-59); BILIRUBIN,DIRECT 0.5 mg/dL (0.0-0.4); BLOOD UREA NITROGEN 27 mg/dL (7-20); CALCIUM 9.6 mg/dL (8.4-10.2); CARBON DIOXIDE 21 mmol/L (22-30); CHLORIDE 102 mmol/L (98-107); CREATINE KINASE 39 U/L (55-170); GLUCOSE 120 mg/dL (75-110); POTASSIUM 5.7 mmol/L (3.6-5.0); SODIUM 137.5 mmol/L (137-145); TOTAL PROTEIN 6.5 g/dL (6.3-8.2)
[2017-07-27 06:56] LABS: TROPONIN I 0.026 ng/mL
[2017-07-27] MEDS ORDERED: LANSOPRAZOLE 30 MG TAB.RAP.DR PO ONE (07:00)
--- NOTE | 2017-07-27 07:43 | PDOC H&P ---
History of Present Illness Admission Date/PCP: 07/27/17 05:55 RUTH SEGUNDO MD History of Present Illness: TESS GASTON is a 77 year old male presents with 2 week history of wheezing, cough productive of light yellow sputum, subjective chills, rhinorrhea , nause and vomiting. Patient is found to have left lower lobe pneumonia. Daughters present at bedside report he is to have cardiac cath at [facility] next week and evaluation for LVAD. Patient does not know medications and did not bring them. Due to emergent nature of condition will be admitted without full reconciliation. Past Medical History Cardiac Medical History: Reports: Congestive Heart Failure, Coronary Artery Disease, Myocardial Infarction, Hyperlipidema, Hypertension Pulmonary Medical History: Reports: Chronic Obstructive Pulmonary Disease (COPD) Denies: Asthma, Bronchitis, Pneumonia Neurological Medical History: Denies: Seizures GI Medical History: Reports: Diverticulitis, Gastroesophageal Reflux Disease, Hiatal Hernia Denies: Hepatitis Musculoskeltal Medical History: Reports: Arthritis Psychiatric Medical History: Reports: Tobacco Dependency Hematology: Denies: Anemia, Sickle Cell Disease Past Surgical History Past Surgical History: Reports: Cholecystectomy, Internal Defibrillator, Knee Replacement, Orthopedic Surgery, Pacemaker - INSERTED ABT 5 MONTHS/ NOT WORKING LIKE , Tonsillectomy, Other - partial colectomy Social History Smoking Status: Current Every Day Smoker - 2 packs/day Cigarettes Packs Per Day: 2 Frequency of Alcohol Use: None Hx Recreational Drug Use: No Hx Prescription Drug Abuse: No - Advance Directive Resuscitation Status: Do Not Resuscitate Surrogate healthcare decision maker:: Gaby daughter [phone] Family History Family History: COPD, DM Parental Family History Reviewed: Yes Children Family History Reviewed: Yes Sibling(s) Family History Reviewed.: Yes Medication/Allergy Home Medications: Aspirin 81 mg PO DAILY 03/01/13 Docusate Sodium [Colace 100 mg Capsule] 100 mg PO QHS 03/01/13 Esomeprazole Magnesium [Nexium] 40 mg PO DAILY 03/01/13 Fluticasone Propionate [Flonase Nasal [place] 50 Mcg/[place] 16 gm] 2 spray NASL DAILY 03/01/13 Metoprolol Succinate [Toprol XL 25 mg Tablet] 50 mg PO DAILY 03/01/13 Zolpidem Tartrate [Ambien 10 mg Tablet] 1 tab PO HSP PRN 03/01/13 Desonide [Desowen] 60 gm TP BID 05/17/16 Duloxetine HCl 60 mg PO DAILY 05/17/16 E Qcomplete Multi Vitamin 1 tab PO DAILY 05/17/16 Furosemide [Lasix 40 mg Tablet] 40 mg PO BID 05/17/16 Gabapentin 200 mg PO QHS 05/17/16 Guaifenesin [Mucinex] 1,200 mg PO BID 05/17/16 Morphine Sulfate [Morphine Ir 15 Mg Tablet] 15 mg PO BID 05/17/16 Naloxegol Oxalate [Movantik 25 mg Tablet] 25 mg PO DAILY 05/17/16 [place]-3 Fatty Acids [Fish Oil] 1,000 mg PO DAILY 05/17/16 Oxycodone HCl [Oxycontin Sr 40 mg Tablet] 40 mg PO Q12 05/17/16 Pravastatin Sodium 20 mg PO DAILY 05/17/16 Testosterone [Fortesta] 10 mg TD DAILY 05/17/16 Spironolactone 25 mg PO DAILY #30 tablet 11/02/16 Allergies/Adverse Reactions: No Known Allergies Allergy (Verified 11/02/16 15:50) Review of Systems Constitutional: PRESENT: chills, fatigue. ABSENT: fever(s), headache(s), weight gain, weight loss Eyes: ABSENT: visual disturbances Ears: ABSENT: hearing changes Cardiovascular: PRESENT: dyspnea on exertion, orthropnea. ABSENT: chest pain, edema, palpitations Respiratory: PRESENT: cough, dyspnea, sputum. ABSENT: hemoptysis Gastrointestinal: PRESENT: constipation, nausea, vomiting. ABSENT: abdominal pain, diarrhea, hematemesis, hematochezia, melena Genitourinary: ABSENT: dysuria, hematuria Musculoskeletal: ABSENT: joint swelling Integumentary: ABSENT: rash, wounds Neurological: ABSENT: abnormal gait, abnormal speech, confusion, dizziness, focal weakness, syncope Psychiatric: ABSENT: anxiety, depression, homidical ideation, suicidal ideation Endocrine: ABSENT: cold intolerance, heat intolerance, polydipsia, polyuria Hematologic/Lymphatic: ABSENT: easy bleeding, easy bruising Physical Exam Vital Signs: Temp Pulse Resp BP Pulse Ox 98.7 F 20 125/61 88 L 07/27/17 04:59 07/27/17 05:01 07/27/17 05:01 07/27/17 05:01 General appearance: PRESENT: mild distress, well-developed, well-nourished Head exam: PRESENT: atraumatic, normocephalic Eye exam: PRESENT: conjunctiva pink, EOMI, PERRLA, scleral icterus. ABSENT: conjunctival injection Ear exam: PRESENT: normal external ear exam Mouth exam: PRESENT: dry mucosa, tongue midline Neck exam: ABSENT: JVD, lymphadenopathy, thyromegaly, tracheal deviation Respiratory exam: PRESENT: accessory muscle use, prolonged expiratory phas, rhonchi, symmetrical, tachypnea, unlabored, wheezes, other - gynecomastia. ABSENT: rales, stridor Cardiovascular exam: PRESENT: RRR, +S1, +S2, systolic murmur. ABSENT: diastolic murmur, rubs Vascular exam: PRESENT: normal capillary refill GI/Abdominal exam: PRESENT: normal bowel sounds, soft. ABSENT: distended, firm , guarding, mass, organolmegaly, rebound, rigid, tenderness Rectal exam: PRESENT: deferred Extremities exam: PRESENT: clubbing, full ROM. ABSENT: calf tenderness, pedal edema Neurological exam: PRESENT: alert, awake, oriented to person, oriented to place , oriented to time, oriented to situation, CN II-XII grossly intact. ABSENT: motor sensory deficit Psychiatric exam: PRESENT: depressed, flat affect. ABSENT: homicidal ideation, suicidal ideation Skin exam: PRESENT: dry, intact, warm. ABSENT: cyanosis Results Laboratory Results: 07/27/17 07/27/17 07/27/17 04:55 04:55 06:05 WBC 17.2 H Hgb 11.5 L Plt Count 299 VBG pH 7.39 Potassium 5.7 H BUN 27 H Creatinine 1.69 H Glucose 120 H Direct Bilirubin 0.5 H Albumin 3.8 Impressions: Chest X-Ray 07/27/17 04:38 IMPRESSION: 1. Left basilar consolidation concerning for pneumonia. Continued radiographic follow-up to resolution recommended. Assessment & Plan - Diagnosis (1) Pneumonia Qualifiers: Pneumonia type: due to unspecified organism Laterality: left Lung location: lower lobe of lung Qualified Code(s): J18.1 - Lobar pneumonia, unspecified organism Is this a current diagnosis for this admission?: Yes Plan: ROcephin and azithromycin for CAP nebulized treatments sputum culture (2) Acute hypoxemic respiratory failure Is this a current diagnosis for this admission?: Yes Plan: o2 to maintain saturation between 88-92 (3) COPD (chronic obstructive pulmonary disease) Qualifiers: Emphysema type: unspecified Is this a current diagnosis for this admission?: Yes Plan: Solumedrol and scheduled nebs (4) Sepsis Qualifiers: Sepsis type: sepsis due to unspecified organism Qualified Code(s): A41.9 - Sepsis, unspecified organism Is this a current diagnosis for this admission?: Yes Plan: No fluid bolus 2/2 systolic CHF Maintain MAP >65 Abx for CAP (5) Chronic systolic CHF (congestive heart failure) Is this a current diagnosis for this admission?: Yes Plan: Continue home medications. Patient reports his AICD pacemaker doesn't work (6) HTN (hypertension) Is this a current diagnosis for this admission?: Yes (7) Chronic back pain Is this a current diagnosis for this admission?: Yes (8) NAFLD (nonalcoholic fatty liver disease) Is this a current diagnosis for this admission?: Yes (9) Chronic use of opiate for therapeutic purpose Is this a current diagnosis for this admission?: Yes Plan: Continue home dose once confirmed (10) Tobacco abuse Is this a current diagnosis for this admission?: Yes Plan: Encourage cessation, nicotine patch - Time Time Spent: 30 to 50 Minutes Medications reviewed and adjusted accordingly: Yes Anticipated discharge: Home - Inpatient Certification Based on my medical assessment, after consideration of the patient's comorbidities, presenting symptoms, or acuity I expect that the services needed warrant INPATIENT care.: Yes I certify that my determination is in accordance with my understanding of Medicare's requirements for reasonable and necessary INPATIENT services [42 CFR 412.3e].: Yes Medical Necessity: Need for Nebulizer Therapy and Monitoring of Response, Need for IV Antibiotics Post Hospital Care: D/C Senior Air Director Documentation
[2017-07-27] MEDS: LEVALBUTEROL HCL NEB 0.63 MG/3 ML AMPUL NEB SCH ×2 (08:55→12:04)
[2017-07-27] MEDS: IPRATROPIUM BROMIDE 0.02% NEB 0.5 MG/2.5 ML AMPUL NEB SCH ×2 (08:55→12:04)
[2017-07-27] MEDS ORDERED: CEFTRIAXONE 1 GM/D5W RTU 1 GM/50 ML RTUPB IV SCH (10:00)
[2017-07-27] MEDS ORDERED: (PENDING PHARMACY ID) (Duloxetine Hcl [Duloxetine Hcl] 60 MG) PO SCH (10:00)
[2017-07-27] MEDS ORDERED: FAMOTIDINE 20 MG TABLET PO SCH (10:00)
[2017-07-27] MEDS ORDERED: SPIRONOLACTONE 25 MG TABLET PO SCH (10:00)
[2017-07-27] MEDS ORDERED: AZITHROMYCIN 500 MG in DEXTROSE 5%-WATER 250 ML IV SCH (10:00)
[2017-07-27] MEDS: GUAIFENESIN 600 MG TABLET.SA PO SCH ×2 (11:38→22:50)
[2017-07-27] MEDS: DULOXETINE HCL 30 MG CAPSULE.DR PO SCH (11:39)
[2017-07-27] MEDS: FLUTICASONE NASAL SPRAY 50 MCG/SPRY 120 SPRAY/16 GM NASL SCH (11:39)
[2017-07-27] MEDS: ASPIRIN 81 MG TABLET, CHEWABLE PO SCH (11:40)
[2017-07-27] MEDS: DOCUSATE SODIUM 100 MG CAPSULE PO SCH ×2 (11:40→18:39)
[2017-07-27] MEDS: NICOTINE 21 MG/24 HR PATCH.TD24 TD SCH (11:41)
[2017-07-27] MEDS: METOPROLOL SUCCINATE 25 MG TAB.SR.24H PO SCH (11:46)
--- NOTE | 2017-07-27 12:38 | EKG REPORT ---
SEVERITY:- ABNORMAL ECG - SINUS RHYTHM SUPRAVENTRICULAR BIGEMINY : Confirmed by: Opal Lopez MD 27-Jul-2017 12:37:11
[2017-07-27] MEDS ORDERED: METHYLPREDNISOLONE INJ 40 MG/1 ML SDV IV SCH (14:00)
[2017-07-27] MEDS ORDERED: METHYLPREDNISOLONE INJ 125 MG/2 ML SDV IV SCH (14:00)
[2017-07-27] MEDS: HEPARIN SOD (PORCINE) 5,000 UNIT/ML 1 ML SYRINGE SUBCUT SCH ×2 (15:12→22:50)
[2017-07-27] MEDS ORDERED: SODIUM POLYSTYRENE SULFONATE 15 GM/60 ML PO ONE (15:49)
[2017-07-27 18:14] LABS: ANION GAP 11 (5-19); BLOOD UREA NITROGEN 34 mg/dL (7-20); CALCIUM 9.6 mg/dL (8.4-10.2); CARBON DIOXIDE 28 mmol/L (22-30); CHLORIDE 99 mmol/L (98-107); GLUCOSE 180 mg/dL (75-110); SODIUM 138.2 mmol/L (137-145)
[2017-07-27 18:32] LABS: ARTERIAL BLOOD BASE EXCESS 0.7 mmol/L; ARTERIAL BLOOD FIO2 50%; ARTERIAL BLOOD H2CO3 1.08 mmol/L (1.05-1.35); ARTERIAL BLOOD HCO3 24.4 mmol/L (20-26); ARTERIAL BLOOD O2 SATURATION 95.7 % (94-98); ARTERIAL BLOOD PCO2 35.8 mmHg (35-45); ARTERIAL BLOOD PH 7.45 (7.35-7.45); ARTERIAL BLOOD PO2 75.2 mmHg (80-100); ARTERIAL BLOOD TOTAL CO2 25.5 mmol/L (23-27)
[2017-07-27 18:34] LABS: POTASSIUM 4.6 mmol/L (3.6-5.0)
[2017-07-27] MEDS: PIPERACILLIN SODIUM/TAZOBACTAM 3.375 GM in NORMAL SALINE 100 ML IV SCH ×2 (18:39→23:03)
--- NOTE | 2017-07-27 18:54 | Progress Note ---
Provider Note Provider Note: Patient was evaluated upon arrival to the unit. Accordingly had been experiencing shortness of breath for a couple of days. Also had been having productive cough. He states that he quit smoking but went back after experiencing a weight gain from 172 to 276. Patient states that he feels better when compared to initially seen in emergency room. At the time of evaluation patient was accompanied by family members who agreed with his assertion of him feeling better. We opted to keep patient on same unit as he was deemed to be improved and stable. Nurse notified around 1700 that patient status has changed and that he had been diaphoretic off and on. She had checked his blood sugar and was 176. Nurse was notified that at that moment the author was pursuing an admission in emergency room. requested for patient obe placed on Bipap. Patient was then seen and overall was less talkative and on examination demonstrated scattered crackles with adequate movement of air. Family concerns were addressed and appeared to understand what was conveyed to them. Ordered troponin, BMP and ABG (results were reviewed at the time of this note). Orders were placed to transfer to [facility].
[2017-07-27] MEDS: IPRATROPIUM/ALBUTEROL 0.5-2.5 MG/3 ML AMPUL NEB SCH (19:53)
[2017-07-27] MEDS: METHYLPREDNISOLONE INJ 125 MG/2 ML SDV IV SCH (20:06)
[2017-07-27] MEDS: GABAPENTIN 100 MG CAPSULE PO SCH (22:50)
[2017-07-28] MEDS: METHYLPREDNISOLONE INJ 125 MG/2 ML SDV IV SCH (02:09)
[2017-07-28] MEDS: PIPERACILLIN SODIUM/TAZOBACTAM 3.375 GM in NORMAL SALINE 100 ML IV SCH ×4 (05:00→23:35)
[2017-07-28] MEDS: LANSOPRAZOLE 30 MG TAB.RAP.DR PO SCH (05:00)
[2017-07-28] MEDS: HEPARIN SOD (PORCINE) 5,000 UNIT/ML 1 ML SYRINGE SUBCUT SCH ×3 (05:01→21:40)
[2017-07-28 06:37] LABS: HEMOGLOBIN 10.6 g/dL (13.5-17.0); MEAN CORPUSCULAR HEMOGLOBIN 29.1 pg (27.0-33.4); MEAN CORPUSCULAR HGB CONC 33.2 g/dL (32.0-36.0); MEAN CORPUSCULAR VOLUME 88 fl (80-97); PLATELET COUNT 314 10^3/uL (150-450); RED BLOOD COUNT 3.65 10^6/uL (4.35-5.55); RED CELL DISTRIBUTION WIDTH 14.5 % (11.5-14.0)
[2017-07-28 06:53] LABS: ANION GAP 13 (5-19); BLOOD UREA NITROGEN 34 mg/dL (7-20); CALCIUM 9.6 mg/dL (8.4-10.2); CARBON DIOXIDE 25 mmol/L (22-30); CHLORIDE 103 mmol/L (98-107); GLUCOSE 128 mg/dL (75-110); SODIUM 140.7 mmol/L (137-145)
[2017-07-28 06:57] LABS: ABSOLUTE LYMPHOCYTES# (MANUAL) 1.8 10^3/uL (0.5-4.7); ABSOLUTE MONOCYTES # (MANUAL) 1.2 10^3/uL (0.1-1.4); BAND NEUTROPHILS % (MANUAL) 4 % (3-5); BASOPHILS % (MANUAL) 0 % (0-2); EOSINOPHILS % (MANUAL) 0 % (0-6); LYMPHOCYTES % (MANUAL) 9 % (13-45); MONOCYTES % (MANUAL) 6 % (3-13); SEGMENTED NEUTROPHILS % (MAN) 81 % (42-78); TOTAL CELLS COUNTED 100
[2017-07-28 06:59] LABS: ANISOCYTOSIS SLIGHT; BURR CELLS SLIGHT; OVALOCYTES SLIGHT; PLATELET COMMENT ADEQUATE; POIKILOCYTOSIS SLIGHT; POLYCHROMASIA SLIGHT; TEAR DROP CELLS SLIGHT; TOXIC GRANULATION 1+
[2017-07-28] MEDS: IPRATROPIUM/ALBUTEROL 0.5-2.5 MG/3 ML AMPUL NEB SCH ×3 (08:38→21:04)
[2017-07-28] MEDS: ASPIRIN 81 MG TABLET, CHEWABLE PO SCH (09:22)
[2017-07-28] MEDS: TAMSULOSIN HCL 0.4 MG CAP.SR.24H PO SCH (09:23)
[2017-07-28] MEDS: METOPROLOL SUCCINATE 25 MG TAB.SR.24H PO SCH (09:23)
[2017-07-28] MEDS: GUAIFENESIN 600 MG TABLET.SA PO SCH ×2 (09:23→21:40)
[2017-07-28] MEDS: DOCUSATE SODIUM 100 MG CAPSULE PO SCH ×2 (09:23→18:16)
[2017-07-28] MEDS: METHYLPREDNISOLONE INJ 40 MG/1 ML SDV IV SCH ×2 (09:24→21:40)
[2017-07-28] MEDS: NICOTINE 21 MG/24 HR PATCH.TD24 TD SCH (09:24)
[2017-07-28] MEDS: DULOXETINE HCL 30 MG CAPSULE.DR PO SCH (09:24)
[2017-07-28] MEDS: OXYCODONE HCL IR 5 MG TABLET PO PRN ×2 (09:30→21:40)
[2017-07-28] MEDS: FLUTICASONE/SALMETEROL DISKUS 250-50 MCG/DOSE IH SCH ×2 (09:31→21:40)
[2017-07-28] MEDS: FLUTICASONE NASAL SPRAY 50 MCG/SPRY 120 SPRAY/16 GM NASL SCH (09:31)
[2017-07-28] MEDS ORDERED: METHYLPREDNISOLONE INJ 125 MG/2 ML SDV IV SCH (10:00)
--- NOTE | 2017-07-28 12:46 | PDOC PROGRESS REPORT ---
Subjective Progress Note for:: 07/28/17 Subjective:: Feels better and was wondering when he could eat. Reason For Visit: SEPSIS,PNEUMONIA,COPD EXACERBATION Physical Exam Vital Signs: Temp Pulse Resp BP Pulse Ox 97.9 F 73 14 124/69 100 07/28/17 03:43 07/28/17 07:00 07/28/17 06:00 07/28/17 04:50 07/28/17 06:00 Intake & Output 07/27/17 07/28/17 07/29/17 06:59 06:59 06:59 Intake Total 847 Output Total 545 Balance 302 Weight 110.3 kg General appearance: PRESENT: no acute distress, cooperative, morbidly obese Head exam: PRESENT: atraumatic, normocephalic Eye exam: PRESENT: EOMI, PERRLA Ear exam: PRESENT: normal external ear exam Mouth exam: PRESENT: moist Neck exam: PRESENT: full ROM, tenderness. ABSENT: JVD Respiratory exam: PRESENT: clear to auscultation cleo Cardiovascular exam: PRESENT: RRR. ABSENT: diastolic murmur, systolic murmur Vascular exam: PRESENT: normal capillary refill GI/Abdominal exam: PRESENT: normal bowel sounds, soft. ABSENT: tenderness Extremities exam: PRESENT: full ROM. ABSENT: joint swelling, pedal edema Neurological exam: PRESENT: alert, awake, oriented to person, oriented to place , oriented to time Psychiatric exam: PRESENT: appropriate affect, normal mood Results Laboratory Results: 07/28/17 06:00 07/28/17 06:00 07/27/17 07/27/17 07/27/17 17:30 17:30 17:35 WBC RBC Hgb Hct MCV MCH MCHC RDW Plt Count Seg Neutrophils % Lymphocytes % Monocytes % Eosinophils % Basophils % Absolute Neutrophils Absolute Lymphocytes Absolute Monocytes Absolute Eosinophils Absolute Basophils Carbonic Acid Cancelled HCO3/H2CO3 Ratio Cancelled ABG pH Cancelled ABG pCO2 Cancelled ABG pO2 Cancelled ABG HCO3 Cancelled ABG O2 Saturation Cancelled ABG Base Excess Cancelled FiO2 Cancelled Sodium 138.2 Potassium 4.6 D Chloride 99 Carbon Dioxide 28 Anion Gap 11 BUN 34 H Creatinine 1.86 H Est GFR ( Amer) 43 L Est GFR (Non-Af Amer) 36 L Glucose 180 H Calcium 9.6 Magnesium 2.3 07/27/17 07/28/17 07/28/17 18:08 06:00 06:00 WBC 20.0 H RBC 3.65 L Hgb 10.6 L Hct 32.0 L MCV 88 MCH 29.1 MCHC 33.2 RDW 14.5 H Plt Count 314 Seg Neutrophils % Not Reportable Lymphocytes % Not Reportable Monocytes % Not Reportable Eosinophils % Not Reportable Basophils % Not Reportable Absolute Neutrophils Not Reportable Absolute Lymphocytes Not Reportable Absolute Monocytes Not Reportable Absolute Eosinophils Not Reportable Absolute Basophils Not Reportable Carbonic Acid 1.08 HCO3/H2CO3 Ratio 22:1 ABG pH 7.45 ABG pCO2 35.8 ABG pO2 75.2 L ABG HCO3 24.4 ABG O2 Saturation 95.7 ABG Base Excess 0.7 FiO2 50% Sodium 140.7 Potassium 5.0 Chloride 103 Carbon Dioxide 25 Anion Gap 13 BUN 34 H Creatinine 1.81 H Est GFR ( Amer) 44 L Est GFR (Non-Af Amer) 37 L Glucose 128 H Calcium 9.6 Magnesium 07/27/17 07/27/17 07/27/17 06:05 06:05 17:30 Creatine Kinase 39 L Troponin I 0.026 < 0.012 NT-Pro-B Natriuret Pep 285 07/27/17 07/28/17 23:35 06:00 Creatine Kinase Troponin I < 0.012 < 0.012 NT-Pro-B Natriuret Pep Impressions: Chest X-Ray 07/27/17 04:38 IMPRESSION: 1. Left basilar consolidation concerning for pneumonia. Continued radiographic follow-up to resolution recommended. Assessment & Plan - Diagnosis (1) Acute hypoxemic respiratory failure Is this a current diagnosis for this admission?: Yes Plan: Require BiPAP overnight and has been transitioned to 4 L of O2 by nasal cannula. Worsening likely related to oversedation (2) COPD (chronic obstructive pulmonary disease) Qualifiers: Emphysema type: unspecified Is this a current diagnosis for this admission?: Yes Plan: Continue nebulizer treatment and add Advair (3) Chronic back pain Qualifiers: Back pain location: back pain in unspecified location Is this a current diagnosis for this admission?: Yes Plan: Judicious use of opioids to avoid oversedation (4) Chronic systolic CHF (congestive heart failure) Is this a current diagnosis for this admission?: Yes Plan: Stable (5) Chronic use of opiate for therapeutic purpose Is this a current diagnosis for this admission?: Yes Plan: Judicious use of opioids (6) HTN (hypertension) Qualifiers: Hypertension type: essential hypertension Qualified Code(s): I10 - Essential (primary) hypertension Is this a current diagnosis for this admission?: Yes Plan: Stable (7) Pneumonia Qualifiers: Pneumonia type: due to unspecified organism Laterality: left Lung location: lower lobe of lung Qualified Code(s): J18.1 - Lobar pneumonia, unspecified organism Is this a current diagnosis for this admission?: Yes Plan: Continue Zosyn IV but will add Zithromax orally since white blood cell increased today though is my impression that probably relates to demargination of white blood cells (8) Sepsis Qualifiers: Sepsis type: sepsis due to unspecified organism Qualified Code(s): A41.9 - Sepsis, unspecified organism Is this a current diagnosis for this admission?: Yes Plan: Due to pneumonia and resolved (9) Tobacco abuse Is this a current diagnosis for this admission?: Yes Plan: Educated and motivated to quit. Continue nicotine patch. (10) Urinary retention Is this a current diagnosis for this admission?: Yes Plan: Required de placement overnight. To order flomax due to hx of BPH. - Time Time Spent with patient: 15-24 minutes Medications reviewed and adjusted accordingly: Yes Anticipated discharge: Home - Inpatient Certification Based on my medical assessment, after consideration of the patient's comorbidities, presenting symptoms, or acuity I expect that the services needed warrant INPATIENT care.: Yes I certify that my determination is in accordance with my understanding of Medicare's requirements for reasonable and necessary INPATIENT services [42 CFR 412.3e].: Yes Medical Necessity: Need for Nebulizer Therapy and Monitoring of Response, Need for IV Antibiotics
[2017-07-28] MEDS: GABAPENTIN 100 MG CAPSULE PO SCH (21:40)
[2017-07-29] MEDS: PIPERACILLIN SODIUM/TAZOBACTAM 3.375 GM in NORMAL SALINE 100 ML IV SCH ×4 (05:30→23:34)
[2017-07-29] MEDS: HEPARIN SOD (PORCINE) 5,000 UNIT/ML 1 ML SYRINGE SUBCUT SCH ×3 (05:30→22:27)
[2017-07-29] MEDS: LANSOPRAZOLE 30 MG TAB.RAP.DR PO SCH (05:30)
[2017-07-29 06:09] LABS: HEMATOCRIT 32.1 % (37.9-51.0); HEMOGLOBIN 10.6 g/dL (13.5-17.0); MEAN CORPUSCULAR HEMOGLOBIN 29.1 pg (27.0-33.4); MEAN CORPUSCULAR HGB CONC 33.1 g/dL (32.0-36.0); MEAN CORPUSCULAR VOLUME 88 fl (80-97); PLATELET COUNT 356 10^3/uL (150-450); RED BLOOD COUNT 3.65 10^6/uL (4.35-5.55); RED CELL DISTRIBUTION WIDTH 14.9 % (11.5-14.0); WHITE BLOOD COUNT 19.6 10^3/uL (4.0-10.5)
[2017-07-29 06:34] LABS: ANION GAP 13 (5-19); BLOOD UREA NITROGEN 43 mg/dL (7-20); CALCIUM 9.5 mg/dL (8.4-10.2); CARBON DIOXIDE 26 mmol/L (22-30); CHLORIDE 102 mmol/L (98-107); GLUCOSE 186 mg/dL (75-110); MAGNESIUM 2.4 mg/dL (1.6-2.3); POTASSIUM 4.7 mmol/L (3.6-5.0); SODIUM 141.4 mmol/L (137-145)
[2017-07-29 06:42] LABS: ABSOLUTE LYMPHOCYTES# (MANUAL) 1.6 10^3/uL (0.5-4.7); ABSOLUTE NEUTROPHILS# (MANUAL) 17.1 10^3/uL (1.7-8.2); BAND NEUTROPHILS % (MANUAL) 2 % (3-5); BASOPHILS % (MANUAL) 0 % (0-2); EOSINOPHILS % (MANUAL) 0 % (0-6); LYMPHOCYTES % (MANUAL) 8 % (13-45); MONOCYTES % (MANUAL) 5 % (3-13); NUCLEATED RED BLOOD CELLS 1 /100 WBC (0); SEGMENTED NEUTROPHILS % (MAN) 85 % (42-78); TOTAL CELLS COUNTED 100
[2017-07-29 06:47] LABS: ANISOCYTOSIS SLIGHT; OVALOCYTES SLIGHT; PLATELET COMMENT ADEQUATE; POIKILOCYTOSIS SLIGHT; POLYCHROMASIA SLIGHT; TOXIC GRANULATION 2+
[2017-07-29] MEDS: IPRATROPIUM/ALBUTEROL 0.5-2.5 MG/3 ML AMPUL NEB SCH ×3 (07:47→20:58)
[2017-07-29] MEDS: GUAIFENESIN 600 MG TABLET.SA PO SCH ×2 (11:26→22:27)
[2017-07-29] MEDS: TAMSULOSIN HCL 0.4 MG CAP.SR.24H PO SCH (11:27)
[2017-07-29] MEDS: DULOXETINE HCL 30 MG CAPSULE.DR PO SCH (11:27)
[2017-07-29] MEDS: METOPROLOL SUCCINATE 25 MG TAB.SR.24H PO SCH (11:28)
[2017-07-29] MEDS: AZITHROMYCIN 250 MG TABLET PO SCH (11:28)
[2017-07-29] MEDS: ASPIRIN 81 MG TABLET, CHEWABLE PO SCH (11:29)
[2017-07-29] MEDS: FLUTICASONE/SALMETEROL DISKUS 250-50 MCG/DOSE IH SCH (11:30)
[2017-07-29] MEDS: DOCUSATE SODIUM 100 MG CAPSULE PO SCH ×2 (11:30→17:54)
[2017-07-29] MEDS: METHYLPREDNISOLONE INJ 40 MG/1 ML SDV IV SCH ×2 (11:30→22:27)
[2017-07-29] MEDS: FLUTICASONE NASAL SPRAY 50 MCG/SPRY 120 SPRAY/16 GM NASL SCH (11:30)
[2017-07-29] MEDS: NICOTINE 21 MG/24 HR PATCH.TD24 TD SCH (11:31)
[2017-07-29] MEDS ORDERED: (PENDING PHARMACY ID) (Azelastine Hcl [Azelastine Hcl] 1 SPRAY) NAREB SCH (12:45)
--- NOTE | 2017-07-29 13:45 | PDOC PROGRESS REPORT ---
Subjective Progress Note for:: 07/29/17 Subjective:: Complains of a nonproductive cough. Reason For Visit: SEPSIS,PNEUMONIA,COPD EXACERBATION Physical Exam Vital Signs: Temp Pulse Resp BP Pulse Ox 98.2 F 79 17 125/64 100 07/29/17 07:52 07/29/17 07:52 07/29/17 07:52 07/29/17 07:52 07/29/17 07:52 Intake & Output 07/28/17 07/29/17 07/30/17 06:59 06:59 06:59 Intake Total 847 800 Output Total 545 510 Balance 302 290 Weight 110.3 kg 113.2 kg General appearance: PRESENT: no acute distress Eye exam: PRESENT: conjunctiva pink. ABSENT: scleral icterus Mouth exam: PRESENT: moist, tongue midline Neck exam: ABSENT: JVD Respiratory exam: PRESENT: rhonchi - Left-sided rhonchi with some inspiratory rales.. ABSENT: rales, wheezes Cardiovascular exam: PRESENT: RRR. ABSENT: diastolic murmur, rubs, systolic murmur GI/Abdominal exam: PRESENT: normal bowel sounds, soft. ABSENT: distended, guarding, mass, organolmegaly, rebound, tenderness Extremities exam: ABSENT: calf tenderness, clubbing, pedal edema Neurological exam: PRESENT: alert, awake, oriented to person, oriented to place , oriented to time, oriented to situation, CN II-XII grossly intact. ABSENT: motor sensory deficit Psychiatric exam: PRESENT: appropriate affect Skin exam: PRESENT: dry, intact, warm. ABSENT: cyanosis, rash Results Laboratory Results: 07/29/17 05:33 07/29/17 05:33 07/29/17 07/29/17 05:33 05:33 WBC 19.6 H RBC 3.65 L Hgb 10.6 L Hct 32.1 L MCV 88 MCH 29.1 MCHC 33.1 RDW 14.9 H Plt Count 356 Seg Neutrophils % Not Reportable Lymphocytes % Not Reportable Monocytes % Not Reportable Eosinophils % Not Reportable Basophils % Not Reportable Absolute Neutrophils Not Reportable Absolute Lymphocytes Not Reportable Absolute Monocytes Not Reportable Absolute Eosinophils Not Reportable Absolute Basophils Not Reportable Sodium 141.4 Potassium 4.7 Chloride 102 Carbon Dioxide 26 Anion Gap 13 BUN 43 H Creatinine 1.75 H Est GFR ( Amer) 46 L Est GFR (Non-Af Amer) 38 L Glucose 186 H Calcium 9.5 Magnesium 2.4 H 07/27/17 07/27/17 07/27/17 06:05 06:05 17:30 Creatine Kinase 39 L Troponin I 0.026 < 0.012 NT-Pro-B Natriuret Pep 285 07/27/17 07/28/17 23:35 06:00 Creatine Kinase Troponin I < 0.012 < 0.012 NT-Pro-B Natriuret Pep Impressions: Chest X-Ray 07/27/17 04:38 IMPRESSION: 1. Left basilar consolidation concerning for pneumonia. Continued radiographic follow-up to resolution recommended. Assessment & Plan - Diagnosis (1) Acute hypoxemic respiratory failure Is this a current diagnosis for this admission?: Yes Plan: Secondary to pneumonia. Will continue with the Zosyn and Zithromax. (2) COPD (chronic obstructive pulmonary disease) Qualifiers: Emphysema type: unspecified Is this a current diagnosis for this admission?: Yes Plan: Patient has an acute exacerbation along with pneumonia. Will continue with the Solu-Medrol and nebulizers. (3) Chronic back pain Qualifiers: Back pain location: back pain in unspecified location Is this a current diagnosis for this admission?: Yes Plan: Continue with Cymbalta, Neurontin and oxycodone. (4) Chronic systolic CHF (congestive heart failure) Is this a current diagnosis for this admission?: Yes Plan: Patient appears to be euvolemic. (5) HTN (hypertension) Qualifiers: Hypertension type: essential hypertension Qualified Code(s): I10 - Essential (primary) hypertension Is this a current diagnosis for this admission?: Yes (6) Pneumonia Qualifiers: Pneumonia type: due to unspecified organism Laterality: left Lung location: lower lobe of lung Qualified Code(s): J18.1 - Lobar pneumonia, unspecified organism Is this a current diagnosis for this admission?: Yes Plan: Continue with the Zosyn and Zithromax. (7) Sepsis Qualifiers: Sepsis type: sepsis due to unspecified organism Qualified Code(s): A41.9 - Sepsis, unspecified organism Is this a current diagnosis for this admission?: Yes Plan: Secondary to pneumonia. This is improving. (8) Tobacco abuse Is this a current diagnosis for this admission?: Yes Plan: Continue with nicotine patch. (9) Urinary retention Is this a current diagnosis for this admission?: Yes Plan: Patient has had a Thurman placed. Continue with Flomax. - Time Time Spent with patient: 25-34 minutes - Inpatient Certification Medical Necessity: Need for IV Antibiotics
[2017-07-29] MEDS ORDERED: LEVALBUTEROL HCL NEB 1.25 MG/3 ML AMPUL NEB PRN (14:30)
--- NOTE | 2017-07-29 17:31 | RADIOLOGY REPORT (SQ) ---
EXAM DESCRIPTION: CT HEAD WITHOUT COMPLETED DATE/TIME: 07/29/2017 5:14 pm REASON FOR STUDY: Jairo jones, VIRGEN COMPARISON: 09/23/2016 CT brain TECHNIQUE: Axial images acquired through the brain without intravenous contrast. Images reviewed wi th bone, brain and subdural windows. Images stored on PACS. All CT scanners at this facility use dose modulation, iterative reconstruction, and/or weight based d osing when appropriate to reduce radiation dose to as low as reasonably achievable (ALARA). [facility]: Dose Right [facility]: CareDose [facility]: Dose Right [facility]: Teradose 4D [facility]: Smart Swoodoo RADIATION DOSE: CT Rad equipment meets quality standard of care and radiation dose reduction techniq ues were employed. CTDIvol: 67.0 mGy. DLP: 1316 mGy-cm. mGy. LIMITATIONS: None. FINDINGS: VENTRICLES: Normal size and contour. CEREBRUM: No masses. No hemorrhage. No midline shift. No evidence for acute infarction. Normal gra y/white matter differentiation. No areas of low density in the white matter. CEREBELLUM: No masses. No hemorrhage. No alteration of density. No evidence for acute infarction. EXTRAAXIAL SPACES: No fluid collections. No masses. ORBITS AND GLOBE: No intra- or extraconal masses. Normal contour of globe without masses. CALVARIUM: No fracture. PARANASAL SINUSES: No fluid or mucosal thickening. SOFT TISSUES: No mass or hematoma. OTHER: No other significant finding. IMPRESSION: NORMAL BRAIN CT WITHOUT CONTRAST. EVIDENCE OF ACUTE STROKE: NO. COMMENT: Quality ID # [id number]: Final reports with documentation of one or more dose reduction techniques (e.g., Automated exposure control, adjustment of the mA and/or kV according to patient size, use of iterative reconstruction technique) TECHNICAL DOCUMENTATION: JOB ID: [id number]- All Rights Reserved
[2017-07-29] MEDS: OXYCODONE HCL IR 5 MG TABLET PO PRN (17:53)
[2017-07-29] MEDS: GABAPENTIN 100 MG CAPSULE PO SCH (22:26)
[2017-07-29] MEDS: AZELASTINE HCL NASL SCH (22:27)
[2017-07-30] MEDS: OXYCODONE HCL IR 5 MG TABLET PO PRN ×2 (01:35→21:36)
[2017-07-30] MEDS: HEPARIN SOD (PORCINE) 5,000 UNIT/ML 1 ML SYRINGE SUBCUT SCH ×3 (05:49→21:38)
[2017-07-30] MEDS: PIPERACILLIN SODIUM/TAZOBACTAM 3.375 GM in NORMAL SALINE 100 ML IV SCH ×4 (05:50→23:07)
[2017-07-30] MEDS: LANSOPRAZOLE 30 MG TAB.RAP.DR PO SCH (05:50)
[2017-07-30 06:11] LABS: HEMATOCRIT 30.9 % (37.9-51.0); HEMOGLOBIN 10.1 g/dL (13.5-17.0); MEAN CORPUSCULAR HEMOGLOBIN 28.6 pg (27.0-33.4); MEAN CORPUSCULAR HGB CONC 32.6 g/dL (32.0-36.0); MEAN CORPUSCULAR VOLUME 88 fl (80-97); PLATELET COUNT 373 10^3/uL (150-450); RED BLOOD COUNT 3.53 10^6/uL (4.35-5.55)
[2017-07-30 06:34] LABS: ANION GAP 12 (5-19); BLOOD UREA NITROGEN 35 mg/dL (7-20); CALCIUM 9.6 mg/dL (8.4-10.2); CARBON DIOXIDE 23 mmol/L (22-30); CHLORIDE 109 mmol/L (98-107); GLUCOSE 196 mg/dL (75-110); POTASSIUM 5.1 mmol/L (3.6-5.0); SODIUM 144.2 mmol/L (137-145)
[2017-07-30] MEDS: IPRATROPIUM/ALBUTEROL 0.5-2.5 MG/3 ML AMPUL NEB SCH ×3 (08:22→20:53)
[2017-07-30] MEDS: METOPROLOL SUCCINATE 50 MG TAB.SR.24H PO SCH (09:54)
[2017-07-30] MEDS: GUAIFENESIN 600 MG TABLET.SA PO SCH ×2 (09:54→21:36)
[2017-07-30] MEDS: AZITHROMYCIN 250 MG TABLET PO SCH (09:57)
[2017-07-30] MEDS: METHYLPREDNISOLONE INJ 40 MG/1 ML SDV IV SCH ×2 (09:58→21:37)
[2017-07-30] MEDS: ASPIRIN 81 MG TABLET, CHEWABLE PO SCH (09:58)
[2017-07-30] MEDS: DULOXETINE HCL 30 MG CAPSULE.DR PO SCH (09:58)
[2017-07-30] MEDS: TAMSULOSIN HCL 0.4 MG CAP.SR.24H PO SCH (09:58)
[2017-07-30] MEDS: NICOTINE 21 MG/24 HR PATCH.TD24 TD SCH (10:00)
[2017-07-30] MEDS: AZELASTINE HCL NASL SCH ×2 (10:00→21:37)
[2017-07-30] MEDS: DOCUSATE SODIUM 100 MG CAPSULE PO SCH ×2 (10:00→17:44)
[2017-07-30] MEDS: FLUTICASONE NASAL SPRAY 50 MCG/SPRY 120 SPRAY/16 GM NASL SCH (10:00)
--- NOTE | 2017-07-30 12:22 | RADIOLOGY REPORT (SQ) ---
EXAM DESCRIPTION: CAROTID DOPPLER COMPLETED DATE/TIME: 07/30/2017 12:10 pm REASON FOR STUDY: acute neurologic syndrome COMPARISON: None. TECHNIQUE: Grayscale ultrasound, Doppler velocity and spectra, and color Doppler images acquired of the extra-cranial carotid and vertebral arteries. Images stored on PACS. LIMITATIONS: None. FINDINGS: RIGHT CAROTID CCA Velocities: Within normal limits. ICA Velocities Peak systolic 0.65 m/s. End diastolic 0.22 m/s. Proximal ICA/CCA peak systolic ratio 0.9. Mild calcific atherosclerotic plaquing is identified in the carotid bulb. LEFT CAROTID CCA Velocities: Within normal limits. ICA Velocities Peak systolic 0.93 m/s. End diastolic 0.32 m/s. Proximal ICA/CCA peak systolic ratio 1.9. Heterogeneous calcific atherosclerotic plaquing is identified in the carotid bulb. VERTEBRAL ARTERIES: Antegrade flow. Normal waveforms. SUBCLAVIAN ARTERIES: No finding. OTHER: There is some narrowing of the left external carotid artery. IMPRESSION: NO HEMODYNAMICALLY SIGNIFICANT STENOSIS. COMMENT: Quality ID #[id number]: Velocity criteria are extrapolated from the diameter data as defined by t he Society of Radiologists in Ultrasound Consensus Conference. Radiology 2003: 229; 340-346. TECHNICAL DOCUMENTATION: JOB ID: [id number] [employer] All Rights Reserved
--- NOTE | 2017-07-30 14:55 | PDOC PROGRESS REPORT ---
Subjective Progress Note for:: 07/30/17 Subjective:: Yesterday afternoon the patient had an episode of acute dysarthria. He also had acute onset of confusion. This resolved after approximately 20 minutes. He had a head CT done that was unremarkable. I suspect that he suffered from a TIA. He has been on aspirin and we will continue with that. Reason For Visit: SEPSIS,PNEUMONIA,COPD EXACERBATION Physical Exam Vital Signs: Temp Pulse Resp BP Pulse Ox 97.6 F 87 16 128/74 H 98 07/30/17 07:59 07/30/17 11:20 07/30/17 11:20 07/30/17 11:20 07/30/17 11:20 Intake & Output 07/29/17 07/30/17 07/31/17 06:59 06:59 06:59 Intake Total 800 1562 Output Total 510 525 Balance 290 1037 Weight 113.2 kg 112.2 kg General appearance: PRESENT: no acute distress Eye exam: PRESENT: conjunctiva pink. ABSENT: scleral icterus Mouth exam: PRESENT: moist, tongue midline Neck exam: ABSENT: JVD Respiratory exam: PRESENT: clear to auscultation cleo. ABSENT: rales, rhonchi, wheezes Cardiovascular exam: PRESENT: RRR. ABSENT: diastolic murmur, rubs, systolic murmur GI/Abdominal exam: PRESENT: normal bowel sounds, soft. ABSENT: distended, guarding, mass, organolmegaly, rebound, tenderness Extremities exam: PRESENT: full ROM. ABSENT: calf tenderness, clubbing, pedal edema Neurological exam: PRESENT: alert, awake, oriented to person, oriented to place , oriented to time, oriented to situation, CN II-XII grossly intact. ABSENT: motor sensory deficit Psychiatric exam: PRESENT: appropriate affect Skin exam: PRESENT: dry, intact, warm. ABSENT: cyanosis, rash Results Laboratory Results: 07/30/17 05:34 07/30/17 05:34 07/30/17 07/30/17 05:34 05:34 WBC 18.0 H RBC 3.53 L Hgb 10.1 L Hct 30.9 L MCV 88 MCH 28.6 MCHC 32.6 RDW 15.0 H Plt Count 373 Sodium 144.2 Potassium 5.1 H Chloride 109 H Carbon Dioxide 23 Anion Gap 12 BUN 35 H Creatinine 1.56 H Est GFR ( Amer) 53 L Est GFR (Non-Af Amer) 44 L Glucose 196 H Calcium 9.6 07/27/17 08:30 Sputum Gram Stain - Final 07/27/17 08:30 Sputum Sputum Culture - Final Normal Marya C.albicans/C.dubliniensis 07/27/17 07/27/17 07/27/17 06:05 06:05 17:30 Creatine Kinase 39 L Troponin I 0.026 < 0.012 NT-Pro-B Natriuret Pep 285 07/27/17 07/28/17 23:35 06:00 Creatine Kinase Troponin I < 0.012 < 0.012 NT-Pro-B Natriuret Pep Impressions: Chest X-Ray 07/27/17 04:38 IMPRESSION: 1. Left basilar consolidation concerning for pneumonia. Continued radiographic follow-up to resolution recommended. Head CT 07/29/17 16:33 IMPRESSION: NORMAL BRAIN CT WITHOUT CONTRAST. EVIDENCE OF ACUTE STROKE: NO. Carotid Doppler Study 07/30/17 10:35 IMPRESSION: NO HEMODYNAMICALLY SIGNIFICANT STENOSIS. Assessment & Plan - Diagnosis (1) Acute hypoxemic respiratory failure Is this a current diagnosis for this admission?: Yes Plan: Secondary to pneumonia. Will continue with the Zosyn and Zithromax. (2) COPD (chronic obstructive pulmonary disease) Qualifiers: Emphysema type: unspecified Is this a current diagnosis for this admission?: Yes Plan: Patient has an acute exacerbation along with pneumonia. Will continue with the Solu-Medrol and nebulizers. (3) Chronic back pain Qualifiers: Back pain location: back pain in unspecified location Is this a current diagnosis for this admission?: Yes Plan: Continue with Cymbalta, Neurontin and oxycodone. (4) Chronic systolic CHF (congestive heart failure) Is this a current diagnosis for this admission?: Yes Plan: Patient appears to be euvolemic. (5) HTN (hypertension) Qualifiers: Hypertension type: essential hypertension Qualified Code(s): I10 - Essential (primary) hypertension Is this a current diagnosis for this admission?: Yes (6) Pneumonia Qualifiers: Pneumonia type: due to unspecified organism Laterality: left Lung location: lower lobe of lung Qualified Code(s): J18.1 - Lobar pneumonia, unspecified organism Is this a current diagnosis for this admission?: Yes Plan: Continue with the Zosyn and Zithromax. (7) Sepsis Qualifiers: Sepsis type: sepsis due to unspecified organism Qualified Code(s): A41.9 - Sepsis, unspecified organism Is this a current diagnosis for this admission?: Yes Plan: Secondary to pneumonia. This is improving. (8) Tobacco abuse Is this a current diagnosis for this admission?: Yes Plan: Continue with nicotine patch. (9) Urinary retention Is this a current diagnosis for this admission?: Yes Plan: Patient has had a Thurman placed. Continue with Flomax. (10) TIA (transient ischemic attack) Is this a current diagnosis for this admission?: Yes Plan: Head CT done yesterday showed no acute event. Carotid Dopplers have been done and showed no significant stenosis. Will increase the aspirin to 325 mg daily. - Time Time Spent with patient: 25-34 minutes - Inpatient Certification Medical Necessity: Need Close Monitoring Due to Risk of Patient Decompensation, Need for IV Antibiotics
[2017-07-30] MEDS ORDERED: ASPIRIN 81 MG TABLET, CHEWABLE PO SCH (14:56)
[2017-07-30] MEDS: GABAPENTIN 100 MG CAPSULE PO SCH (21:36)
[2017-07-31 05:30] LABS: HEMATOCRIT 32.1 % (37.9-51.0); HEMOGLOBIN 10.5 g/dL (13.5-17.0); MEAN CORPUSCULAR HEMOGLOBIN 28.9 pg (27.0-33.4); MEAN CORPUSCULAR HGB CONC 32.6 g/dL (32.0-36.0); MEAN CORPUSCULAR VOLUME 89 fl (80-97); PLATELET COUNT 384 10^3/uL (150-450); RED BLOOD COUNT 3.62 10^6/uL (4.35-5.55); RED CELL DISTRIBUTION WIDTH 15.2 % (11.5-14.0); WHITE BLOOD COUNT 22.1 10^3/uL (4.0-10.5)
[2017-07-31 05:47] LABS: ANION GAP 13 (5-19); BLOOD UREA NITROGEN 26 mg/dL (7-20); CALCIUM 9.6 mg/dL (8.4-10.2); CARBON DIOXIDE 23 mmol/L (22-30); CHLORIDE 108 mmol/L (98-107); GLUCOSE 126 mg/dL (75-110)
[2017-07-31 05:56] LABS: ABSOLUTE LYMPHOCYTES# (MANUAL) 0.7 10^3/uL (0.5-4.7); ABSOLUTE MONOCYTES # (MANUAL) 1.3 10^3/uL (0.1-1.4); ABSOLUTE NEUTROPHILS# (MANUAL) 20.1 10^3/uL (1.7-8.2); BAND NEUTROPHILS % (MANUAL) 4 % (3-5); BASOPHILS % (MANUAL) 0 % (0-2); EOSINOPHILS % (MANUAL) 0 % (0-6); LYMPHOCYTES % (MANUAL) 3 % (13-45); METAMYELOCYTES % (MANUAL) 1 % (0); MONOCYTES % (MANUAL) 6 % (3-13); NUCLEATED RED BLOOD CELLS 1 /100 WBC (0); SEGMENTED NEUTROPHILS % (MAN) 86 % (42-78); TOTAL CELLS COUNTED 100
[2017-07-31 05:57] LABS: ANISOCYTOSIS SLIGHT; OVALOCYTES SLIGHT; PLATELET COMMENT ADEQUATE; POIKILOCYTOSIS SLIGHT; POLYCHROMASIA SLIGHT; TOXIC GRANULATION 1+; TOXIC VACUOLATION PRESENT
[2017-07-31] MEDS: PIPERACILLIN SODIUM/TAZOBACTAM 3.375 GM in NORMAL SALINE 100 ML IV SCH (06:10)
[2017-07-31] MEDS: HEPARIN SOD (PORCINE) 5,000 UNIT/ML 1 ML SYRINGE SUBCUT SCH ×3 (06:10→21:23)
[2017-07-31] MEDS: LANSOPRAZOLE 30 MG TAB.RAP.DR PO SCH (06:10)
[2017-07-31] MEDS: IPRATROPIUM/ALBUTEROL 0.5-2.5 MG/3 ML AMPUL NEB SCH ×3 (08:02→20:35)
[2017-07-31] MEDS: METHYLPREDNISOLONE INJ 40 MG/1 ML SDV IV SCH (11:13)
[2017-07-31] MEDS: NICOTINE 21 MG/24 HR PATCH.TD24 TD SCH (11:13)
[2017-07-31] MEDS: GUAIFENESIN 600 MG TABLET.SA PO SCH ×2 (11:14→21:22)
[2017-07-31] MEDS: TAMSULOSIN HCL 0.4 MG CAP.SR.24H PO SCH (11:14)
[2017-07-31] MEDS: AZELASTINE HCL NASL SCH ×2 (11:14→21:23)
[2017-07-31] MEDS: ASPIRIN 325 MG TABLET, ENT COATED PO SCH (11:14)
[2017-07-31] MEDS: DULOXETINE HCL 30 MG CAPSULE.DR PO SCH (11:14)
[2017-07-31] MEDS: AZITHROMYCIN 250 MG TABLET PO SCH (11:14)
[2017-07-31] MEDS: METOPROLOL SUCCINATE 50 MG TAB.SR.24H PO SCH (11:14)
[2017-07-31] MEDS: DOCUSATE SODIUM 100 MG CAPSULE PO SCH ×2 (11:31→17:57)
--- NOTE | 2017-07-31 13:06 | PDOC PROGRESS REPORT ---
Subjective Progress Note for:: 07/31/17 Subjective:: Patient reports that his shortness of breath has improved. Reason For Visit: SEPSIS,PNEUMONIA,COPD EXACERBATION Physical Exam Vital Signs: Temp Pulse Resp BP Pulse Ox 97.9 F 71 16 120/74 96 07/31/17 11:29 07/31/17 11:29 07/31/17 11:29 07/31/17 11:29 07/31/17 11:29 Intake & Output 07/30/17 07/31/17 08/01/17 06:59 06:59 06:59 Intake Total 1562 1543 Output Total 525 1000 Balance 1037 543 Weight 112.2 kg 112.4 kg General appearance: PRESENT: no acute distress Eye exam: PRESENT: conjunctiva pink. ABSENT: scleral icterus Mouth exam: PRESENT: moist, tongue midline Neck exam: ABSENT: JVD Respiratory exam: PRESENT: clear to auscultation cleo. ABSENT: rales, rhonchi, wheezes Cardiovascular exam: PRESENT: RRR. ABSENT: diastolic murmur, rubs, systolic murmur GI/Abdominal exam: PRESENT: normal bowel sounds, soft. ABSENT: distended, guarding, mass, organolmegaly, rebound, tenderness Extremities exam: ABSENT: calf tenderness, clubbing, pedal edema Neurological exam: PRESENT: alert, awake, oriented to person, oriented to place , oriented to time, oriented to situation, CN II-XII grossly intact. ABSENT: motor sensory deficit Psychiatric exam: PRESENT: appropriate affect Skin exam: PRESENT: dry, intact, warm. ABSENT: cyanosis, rash Results Laboratory Results: 07/31/17 04:51 07/31/17 04:51 07/31/17 07/31/17 04:51 04:51 WBC 22.1 H RBC 3.62 L Hgb 10.5 L Hct 32.1 L MCV 89 MCH 28.9 MCHC 32.6 RDW 15.2 H Plt Count 384 Seg Neutrophils % Not Reportable Lymphocytes % Not Reportable Monocytes % Not Reportable Eosinophils % Not Reportable Basophils % Not Reportable Absolute Neutrophils Not Reportable Absolute Lymphocytes Not Reportable Absolute Monocytes Not Reportable Absolute Eosinophils Not Reportable Absolute Basophils Not Reportable Sodium 144.0 Potassium 5.0 Chloride 108 H Carbon Dioxide 23 Anion Gap 13 BUN 26 H Creatinine 1.27 H Est GFR ( Amer) > 60 Est GFR (Non-Af Amer) 55 L Glucose 126 H Calcium 9.6 07/27/17 07/27/17 07/27/17 06:05 06:05 17:30 Creatine Kinase 39 L Troponin I 0.026 < 0.012 NT-Pro-B Natriuret Pep 285 07/27/17 07/28/17 23:35 06:00 Creatine Kinase Troponin I < 0.012 < 0.012 NT-Pro-B Natriuret Pep Impressions: Chest X-Ray 07/27/17 04:38 IMPRESSION: 1. Left basilar consolidation concerning for pneumonia. Continued radiographic follow-up to resolution recommended. Head CT 07/29/17 16:33 IMPRESSION: NORMAL BRAIN CT WITHOUT CONTRAST. EVIDENCE OF ACUTE STROKE: NO. Carotid Doppler Study 07/30/17 10:35 IMPRESSION: NO HEMODYNAMICALLY SIGNIFICANT STENOSIS. Assessment & Plan - Diagnosis (1) Acute hypoxemic respiratory failure Is this a current diagnosis for this admission?: Yes Plan: Secondary to pneumonia. Will switch to Augmentin and prednisone as he is improving (2) COPD (chronic obstructive pulmonary disease) Qualifiers: Emphysema type: unspecified Is this a current diagnosis for this admission?: Yes Plan: Patient has an acute exacerbation along with pneumonia. Will change the Solu- Medrol to prednisone. (3) Chronic back pain Qualifiers: Back pain location: back pain in unspecified location Is this a current diagnosis for this admission?: Yes Plan: Continue with Cymbalta, Neurontin and oxycodone. (4) Chronic systolic CHF (congestive heart failure) Is this a current diagnosis for this admission?: Yes Plan: Patient appears to be euvolemic. (5) HTN (hypertension) Qualifiers: Hypertension type: essential hypertension Qualified Code(s): I10 - Essential (primary) hypertension Is this a current diagnosis for this admission?: Yes (6) Pneumonia Qualifiers: Pneumonia type: due to unspecified organism Laterality: left Lung location: lower lobe of lung Qualified Code(s): J18.1 - Lobar pneumonia, unspecified organism Is this a current diagnosis for this admission?: Yes Plan: We will change the Zosyn to Augmentin. (7) Sepsis Qualifiers: Sepsis type: sepsis due to unspecified organism Qualified Code(s): A41.9 - Sepsis, unspecified organism Is this a current diagnosis for this admission?: Yes Plan: Secondary to pneumonia. This is improving. (8) Tobacco abuse Is this a current diagnosis for this admission?: Yes Plan: Continue with nicotine patch. (9) Urinary retention Is this a current diagnosis for this admission?: Yes Plan: Continue with Flomax. (10) TIA (transient ischemic attack) Is this a current diagnosis for this admission?: Yes Plan: Head CT showed no acute event. Carotid Dopplers have been done and showed no significant stenosis. Will continue with the aspirin 325 mg daily. - Time Time Spent with patient: 25-34 minutes - Inpatient Certification Medical Necessity: Need Close Monitoring Due to Risk of Patient Decompensation - Plan Summary Plan Summary: If he continues to improve we can hopefully discharge home tomorrow
[2017-07-31] MEDS: AMOXICILLIN TR/POT CLAVULANATE 500-125 MG TAB PO SCH ×2 (14:23→21:22)
[2017-07-31] MEDS: GABAPENTIN 100 MG CAPSULE PO SCH (21:22)
[2017-07-31] MEDS: OXYCODONE HCL IR 5 MG TABLET PO PRN (21:47)
[2017-08-01] MEDS: AMOXICILLIN TR/POT CLAVULANATE 500-125 MG TAB PO SCH (05:39)
[2017-08-01] MEDS: LANSOPRAZOLE 30 MG TAB.RAP.DR PO SCH (05:39)
[2017-08-01] MEDS: HEPARIN SOD (PORCINE) 5,000 UNIT/ML 1 ML SYRINGE SUBCUT SCH (05:39)
[2017-08-01 05:42] LABS: HEMATOCRIT 31.4 % (37.9-51.0); MEAN CORPUSCULAR HEMOGLOBIN 28.6 pg (27.0-33.4); MEAN CORPUSCULAR HGB CONC 31.8 g/dL (32.0-36.0); MEAN CORPUSCULAR VOLUME 90 fl (80-97); PLATELET COUNT 379 10^3/uL (150-450); RED CELL DISTRIBUTION WIDTH 15.5 % (11.5-14.0); WHITE BLOOD COUNT 18.8 10^3/uL (4.0-10.5)
[2017-08-01 06:12] LABS: ABSOLUTE LYMPHOCYTES# (MANUAL) 1.5 10^3/uL (0.5-4.7); ABSOLUTE MONOCYTES # (MANUAL) 0.8 10^3/uL (0.1-1.4); ABSOLUTE NEUTROPHILS# (MANUAL) 16.5 10^3/uL (1.7-8.2); BAND NEUTROPHILS % (MANUAL) 1 % (3-5); BASOPHILS % (MANUAL) 0 % (0-2); EOSINOPHILS % (MANUAL) 0 % (0-6); LYMPHOCYTES % (MANUAL) 8 % (13-45); METAMYELOCYTES % (MANUAL) 1 % (0); MONOCYTES % (MANUAL) 4 % (3-13); NUCLEATED RED BLOOD CELLS 1 /100 WBC (0); SEGMENTED NEUTROPHILS % (MAN) 86 % (42-78); TOTAL CELLS COUNTED 100
[2017-08-01 06:14] LABS: ANISOCYTOSIS SLIGHT; PLATELET COMMENT ADEQUATE; POIKILOCYTOSIS SLIGHT; TARGET CELLS SLIGHT; TOXIC GRANULATION SLIGHT
[2017-08-01 06:15] LABS: ANION GAP 12 (5-19); BLOOD UREA NITROGEN 24 mg/dL (7-20); CALCIUM 9.4 mg/dL (8.4-10.2); CARBON DIOXIDE 24 mmol/L (22-30); CHLORIDE 107 mmol/L (98-107); GLUCOSE 91 mg/dL (75-110); POTASSIUM 4.8 mmol/L (3.6-5.0); SODIUM 142.5 mmol/L (137-145)
[2017-08-01] MEDS: IPRATROPIUM/ALBUTEROL 0.5-2.5 MG/3 ML AMPUL NEB SCH (08:14)
[2017-08-01] MEDS ORDERED: PREDNISONE 20 MG TABLET PO SCH (10:00)
[2017-08-01] MEDS: DULOXETINE HCL 30 MG CAPSULE.DR PO SCH (10:49)
[2017-08-01] MEDS: TAMSULOSIN HCL 0.4 MG CAP.SR.24H PO SCH (10:50)
[2017-08-01] MEDS: GUAIFENESIN 600 MG TABLET.SA PO SCH (10:51)
[2017-08-01] MEDS: AZITHROMYCIN 250 MG TABLET PO SCH (10:51)
[2017-08-01] MEDS: AZELASTINE HCL NASL SCH (10:53)
[2017-08-01] MEDS: METOPROLOL SUCCINATE 50 MG TAB.SR.24H PO SCH (10:53)
[2017-08-01] MEDS: DOCUSATE SODIUM 100 MG CAPSULE PO SCH (10:53)
[2017-08-01] MEDS: NICOTINE 21 MG/24 HR PATCH.TD24 TD SCH (10:57)
[2017-08-01] MEDS: ASPIRIN 325 MG TABLET, ENT COATED PO SCH (10:58)
[2017-08-01 11:18] VITALS: BP 136/97
--- NOTE | 2017-08-01 14:34 | PDOC DISCHARGE SUMMARY ---
General - Admit/Disc Date/PCP Admission Date/Primary Care Provider: 07/27/17 05:55 RUTH SEGUNDO MD Discharge Date: 08/01/17 - Discharge Diagnosis (1) Acute hypoxemic respiratory failure Is this a current diagnosis for this admission?: Yes (2) COPD (chronic obstructive pulmonary disease) Is this a current diagnosis for this admission?: Yes (3) Chronic back pain Is this a current diagnosis for this admission?: Yes (4) Chronic systolic CHF (congestive heart failure) Is this a current diagnosis for this admission?: Yes (5) HTN (hypertension) Is this a current diagnosis for this admission?: Yes (6) Pneumonia Is this a current diagnosis for this admission?: Yes (7) Sepsis Is this a current diagnosis for this admission?: Yes Summary: Negative cultures. (8) Tobacco abuse Is this a current diagnosis for this admission?: Yes (9) Urinary retention Is this a current diagnosis for this admission?: Yes (10) TIA (transient ischemic attack) Is this a current diagnosis for this admission?: Yes Summary: Negative carotid Dopplers. Aspirin was increased from 81 mg to 325 mg daily. - Additional Information Resuscitation Status: Do Not Resuscitate Discharge Diet: Cardiac Discharge Activity: Activity As Tolerated Prescriptions: Amox Tr/Potassium Clavulanate [Augmentin "500" Tablet] 1 tab PO Q8 #30 tablet Gabapentin [Neurontin 100 mg Capsule] 200 mg PO QHS #30 capsule Prednisone [Deltasone 20 mg Tablet] 40 mg PO DAILY #10 tablet Tamsulosin HCl [Flomax 0.4 mg Cap.sr] 0.4 mg PO DAILY #30 cap.sr.24h Home Medications: Alprazolam [Xanax 0.25 mg Tablet] 0.25 mg PO DAILYP PRN 07/27/17 Amiodarone HCl [Cordarone 200 mg Tablet] 200 mg PO Q12 07/27/17 Aspirin [Aspirin EC] 81 mg PO DAILY 07/27/17 Azelastine HCl 1 spray NAREB Q12 07/27/17 Desonide [Desowen] 1 applic TP BID 07/27/17 Duloxetine HCl [Cymbalta] 60 mg PO DAILY 07/27/17 Fluticasone Propionate [Flonase Nasal Gy[place]um 50 Mcg/Gypsum 16 gm] 1 spray NAREB DAILY 07/27/17 Furosemide [Lasix 40 mg Tablet] 40 mg PO QAM 07/27/17 Latanoprost [Xalatan 0.005% Oph Soln 2.5 ml] 1 drop OU QHS 07/27/17 Metoprolol Succinate [Toprol XL 100 mg Tablet] 100 mg PO DAILY 07/27/17 Naloxegol Oxalate [Movantik 25 mg Tablet] 25 mg PO DAILY 07/27/17 [place]-3 Fatty Acids/Fish Oil [Fish Oil 1,000 mg Capsule] 1 cap PO DAILY Oxycodone HCl [Oxy-Ir 5 mg Tablet] 10 mg PO Q8HP PRN 07/27/17 Oxycodone HCl [Oxycontin] 40 mg PO Q12HP PRN 07/27/17 Pantoprazole Sodium [Protonix] 40 mg PO DAILY 07/27/17 Pravastatin Sodium [Pravachol] 20 mg PO QHS 07/27/17 Sildenafil Citrate [Viagra] 100 mg PO .ASDIR PRN 07/27/17 Spironolactone [Aldactone 25 mg Tablet] 25 mg PO DAILY 07/27/17 Testosterone [Fortesta] 6 sprays TD QAM 07/27/17 Amox Tr/Potassium Clavulanate [Augmentin "500" Tablet] 1 tab PO Q8 #30 tablet 08/01/17 Aspirin [Ecotrin 325 mg EC Tablet] 325 mg PO DAILY tabec 08/01/17 Gabapentin [Neurontin 100 mg Capsule] 200 mg PO QHS #30 capsule 08/01/17 Nicotine [Nicoderm 21 mg/24 Hr Transderm Patch] 1 each TD DAILY patch.td24 12/12 Prednisone [Deltasone 20 mg Tablet] 40 mg PO DAILY #10 tablet 08/01/17 Tamsulosin HCl [Flomax 0.4 mg Cap.sr] 0.4 mg PO DAILY #30 cap.sr.24h 08/01/17 History of Present Illness History of Present Illness: TESS GASTON is a 77 year old male who presents with a two-week history of cough of yellow sputum along with wheezing, chills, nausea and vomiting. Patient was found to have a left lower lobe pneumonia and is admitted for treatment. Hospital Course Hospital Course: 77-year-old male who presented with a two-week history of cough productive of some yellow sputum. He was found to have a left lower lobe pneumonia. He also had a component of an acute COPD exacerbation. He initially required BiPAP treatment. The patient was started on broad-spectrum antibiotics and his cultures were negative. The patient was eventually switched over to p.o. Augmentin and will be sent home on a course of antibiotics to complete. The patient while hospitalized also did have the acute COPD exacerbation treated with steroids, BiPAP and nebulizers. This has improved. His oxygen saturation on room air prior to discharge was 99% on room air. The patient while hospitalized did have a 20 minute episode of acute dysarthria and expressive aphasia. He had a head CT that showed no abnormalities and it was thought to have had a TIA. The patient had carotid Dopplers that were unremarkable with no significant stenosis. The patient was on aspirin 81 mg daily and this has been increased to 325 mg daily. Patient has a history of coronary artery disease and is scheduled to have a left ventricular assist device possibly placed at [facility] in the near future. Patient is at his baseline respiratory status and he is discharged home in stable condition. Physical Exam Vital Signs: Temp Pulse Resp BP Pulse Ox 99.1 F 76 14 136/97 H 95 08/01/17 11:15 08/01/17 11:15 08/01/17 11:15 08/01/17 11:15 08/01/17 11:15 Intake & Output 07/31/17 08/01/17 08/02/17 06:59 06:59 06:59 Intake Total 1543 1333 237 Output Total 1000 800 500 Balance 543 533 -263 Weight 112.4 kg 112.3 kg General appearance: PRESENT: no acute distress Eye exam: PRESENT: conjunctiva pink. ABSENT: scleral icterus Mouth exam: PRESENT: moist, tongue midline Neck exam: ABSENT: JVD Respiratory exam: PRESENT: clear to auscultation cleo. ABSENT: rales, rhonchi, wheezes Cardiovascular exam: PRESENT: RRR. ABSENT: diastolic murmur, rubs, systolic murmur GI/Abdominal exam: PRESENT: normal bowel sounds, soft. ABSENT: distended, guarding, mass, organolmegaly, rebound, tenderness Rectal exam: PRESENT: deferred Extremities exam: ABSENT: calf tenderness, clubbing, pedal edema Neurological exam: PRESENT: alert, awake, oriented to person, oriented to place , oriented to time, oriented to situation, CN II-XII grossly intact. ABSENT: motor sensory deficit Psychiatric exam: PRESENT: appropriate affect Skin exam: PRESENT: dry, intact, warm. ABSENT: cyanosis, rash Results Laboratory Results: 08/01/17 04:29 08/01/17 04:29 08/01/17 08/01/17 04:29 04:29 WBC 18.8 H RBC 3.50 L Hgb 10.0 L Hct 31.4 L MCV 90 MCH 28.6 MCHC 31.8 L RDW 15.5 H Plt Count 379 Seg Neutrophils % Not Reportable Lymphocytes % Not Reportable Monocytes % Not Reportable Eosinophils % Not Reportable Basophils % Not Reportable Absolute Neutrophils Not Reportable Absolute Lymphocytes Not Reportable Absolute Monocytes Not Reportable Absolute Eosinophils Not Reportable Absolute Basophils Not Reportable Sodium 142.5 Potassium 4.8 Chloride 107 Carbon Dioxide 24 Anion Gap 12 BUN 24 H Creatinine 1.12 Est GFR ( Amer) > 60 Est GFR (Non-Af Amer) > 60 Glucose 91 Calcium 9.4 07/27/17 06:05 Blood Blood Culture - Final NO GROWTH IN 5 DAYS 07/27/17 07/27/17 07/27/17 06:05 06:05 17:30 Creatine Kinase 39 L Troponin I 0.026 < 0.012 NT-Pro-B Natriuret Pep 285 07/27/17 07/28/17 23:35 06:00 Creatine Kinase Troponin I < 0.012 < 0.012 NT-Pro-B Natriuret Pep Impressions: Chest X-Ray 07/27/17 04:38 IMPRESSION: 1. Left basilar consolidation concerning for pneumonia. Continued radiographic follow-up to resolution recommended. Head CT 07/29/17 16:33 IMPRESSION: NORMAL BRAIN CT WITHOUT CONTRAST. EVIDENCE OF ACUTE STROKE: NO. Carotid Doppler Study 07/30/17 10:35 IMPRESSION: NO HEMODYNAMICALLY SIGNIFICANT STENOSIS. Qualifiers PATEINT BEING DISCHARGED WITH ANY OF THE FOLLOWING DIAGNOSIS?: No Plan Discharge Plan: The patient is discharged home in stable condition. Follow-up with primary care in 2 weeks. Time Spent: Greater than 30 Minutes
== END 2017-08-01 12:15 | disposition home or self-care (01) | DRG 871 ==
LOC: ER 04:34 → EH 05:55 → 4W 08:37 → ICU 19:38 → 4W 07-28 19:18
PROVIDERS: ADMIT Family Medicine; ATTEND Family Medicine
DX: A41.9 Sepsis, unspecified organism (principal); J18.1 Lobar pneumonia, unspecified organism; J96.01 Acute respiratory failure with hypoxia; G45.9 Transient cerebral ischemic attack, unspecified; I50.22 Chronic systolic (congestive) heart failure; J44.1 Chronic obstructive pulmonary disease with (acute) exacerbation; J44.0 Chronic obstructive pulmonary disease with (acute) lower respiratory infection; Z66 Do not resuscitate; I11.0 Hypertensive heart disease with heart failure; I25.10 Atherosclerotic heart disease of native coronary artery without angina pectoris; E78.5 Hyperlipidemia, unspecified; R33.9 Retention of urine, unspecified; G89.29 Other chronic pain; F17.210 Nicotine dependence, cigarettes, uncomplicated; Z95.0 Presence of cardiac pacemaker; Z79.82 Long term (current) use of aspirin; Z79.899 Other long term (current) drug therapy; Z79.891 Long term (current) use of opiate analgesic
CPT/HCPCS: 36415; 36600; 70450; 71010; 80048; 80053; 82550; 82803; 82962; 83605; 83735; 83880; 84484; 85025; 85027; 87040; 87070; 87205; 93005; 93010; 93880; 94640; 94660; 94799; 96365; 96368; 99285; J0456; J0696; J1644; J2543; J2920; J2930; J3490; J7512; J7614; J7620

== ENCOUNTER → 2017-09-05 | Outpatient (CLI) | payer MEDICARE, OTHER ==
[2017-09-05 14:50] LABS: HEMATOCRIT 36.5 % (37.9-51.0); HEMOGLOBIN 11.9 g/dL (13.5-17.0); MEAN CORPUSCULAR HEMOGLOBIN 28.9 pg (27.0-33.4); MEAN CORPUSCULAR HGB CONC 32.7 g/dL (32.0-36.0); MEAN CORPUSCULAR VOLUME 88 fl (80-97); PLATELET COUNT 282 10^3/uL (150-450); RED BLOOD COUNT 4.14 10^6/uL (4.35-5.55); RED CELL DISTRIBUTION WIDTH 16.5 % (11.5-14.0); WHITE BLOOD COUNT 11.2 10^3/uL (4.0-10.5)
[2017-09-05 15:09] LABS: ANION GAP 12 (5-19); BLOOD UREA NITROGEN 15 mg/dL (7-20); CALCIUM 9.3 mg/dL (8.4-10.2); CARBON DIOXIDE 24 mmol/L (22-30); CHLORIDE 105 mmol/L (98-107); GLUCOSE 114 mg/dL (75-110); POTASSIUM 4.4 mmol/L (3.6-5.0)
== END ==
LOC: OD 13:43
PROVIDERS: ATTEND Internal Medicine Nephrology
DX: N18.3 Chronic kidney disease, stage 3 (moderate) (principal); I50.9 Heart failure, unspecified; I95.1 Orthostatic hypotension
CPT/HCPCS: 36415; 80048; 85027

== ENCOUNTER → 2017-09-11 | Outpatient (CLI) | payer MEDICARE, OTHER | LOC: OD 11:23 | PROVIDERS: ATTEND Nurse Practitioner Acute Care | DX: R30.0 Dysuria (principal) | CPT/HCPCS: 87086 ==

== ENCOUNTER → 2017-12-29 | Outpatient (CLI) | payer MEDICARE, OTHER ==
[2017-12-29 11:00] LABS: ABSOLUTE BASOPHILS # (AUTO) 0.1 10^3/uL (0.0-0.2); ABSOLUTE EOSINOPHILS # (AUTO) 0.2 10^3/uL (0.0-0.6); ABSOLUTE LYMPHOCYTES (AUTO) 2.4 10^3/uL (0.5-4.7); ABSOLUTE MONOCYTES (AUTO) 1.5 10^3/uL (0.1-1.4); ABSOLUTE NEUT (AUTO) 10.9 10^3/uL (1.7-8.2); BASOPHILS % (AUTO) 0.3 % (0-2); EOSINOPHILS % (AUTO) 1.5 % (0-6); HEMATOCRIT 38.5 % (37.9-51.0); HEMOGLOBIN 12.4 g/dL (13.5-17.0); LYMPHOCYTES % (AUTO) 16.1 % (13-45); MEAN CORPUSCULAR HEMOGLOBIN 28.5 pg (27.0-33.4); MEAN CORPUSCULAR HGB CONC 32.2 g/dL (32.0-36.0); MEAN CORPUSCULAR VOLUME 89 fl (80-97); MONOCYTES % (AUTO) 9.8 % (3-13); PLATELET COUNT 272 10^3/uL (150-450); RED BLOOD COUNT 4.35 10^6/uL (4.35-5.55); RED CELL DISTRIBUTION WIDTH 15.4 % (11.5-14.0); SEGMENTED NEUTROPHILS % (AUTO) 72.3 % (42-78); TOTAL CELLS COUNTED % (AUTO) 100 %; WHITE BLOOD COUNT 15.1 10^3/uL (4.0-10.5)
[2017-12-29 11:23] LABS: ALANINE AMINOTRANSFERASE 51 U/L (21-72); ALBUMIN 3.6 g/dL (3.5-5.0); ALKALINE PHOSPHATASE 127 U/L (38-126); ANION GAP 10 (5-19); ASPARTATE AMINO TRANSFERASE 33 U/L (17-59); BILIRUBIN,DIRECT 0.3 mg/dL (0.0-0.4); BILIRUBIN,TOTAL 0.3 mg/dL (0.2-1.3); BLOOD UREA NITROGEN 28 mg/dL (7-20); CALCIUM 9.5 mg/dL (8.4-10.2); CARBON DIOXIDE 25 mmol/L (22-30); CHLORIDE 109 mmol/L (98-107); GLUCOSE 88 mg/dL (75-110); IRON(TIBC) 120.8 ug/dL (49-181); POTASSIUM 5.7 mmol/L (3.6-5.0); SODIUM 143.7 mmol/L (137-145); TOTAL PROTEIN 6.4 g/dL (6.3-8.2)
[2017-12-30 15:38] LABS: A/G RATIO 1.4 (0.7-1.7); ALBUMIN 2 3.7 g/dL (2.9-4.4); ALPHA-2-GLOBULIN 2 0.8 g/dL (0.4-1.0); GAMMA GLOBULIN 0.6 g/dL (0.4-1.8); GLOBULIN TOTAL 2.6 g/dL (2.2-3.9); MONOCLONAL SPIKE Not Observed g/dL (Not Observ); PROTEIN TOTAL SERUM 6.3 g/dL (6.0-8.5)
== END ==
LOC: OD 09:55
PROVIDERS: ATTEND Internal Medicine Nephrology
DX: I12.9 Hypertensive chronic kidney disease with stage 1 through stage 4 chronic kidney disease, or unspecified chronic kidney disease (principal); N18.2 Chronic kidney disease, stage 2 (mild); I50.9 Heart failure, unspecified; D64.9 Anemia, unspecified
CPT/HCPCS: 36415; 80053; 82728; 83540; 83550; 84165; 84443; 85025

== ENCOUNTER → 2017-12-31 | Outpatient (CLI) | payer MEDICARE, OTHER | LOC: OD 10:39 | PROVIDERS: ATTEND Internal Medicine Nephrology | DX: E87.5 Hyperkalemia (principal) | CPT/HCPCS: 36415; 84132 ==

== ENCOUNTER → 2018-06-09 | Outpatient (CLI) | payer MEDICARE, OTHER ==
[2018-06-09 15:39] LABS: HEMATOCRIT 38.4 % (37.9-51.0); HEMOGLOBIN 12.8 g/dL (13.5-17.0); MEAN CORPUSCULAR HEMOGLOBIN 30.1 pg (27.0-33.4); MEAN CORPUSCULAR HGB CONC 33.3 g/dL (32.0-36.0); MEAN CORPUSCULAR VOLUME 90 fl (80-97); PLATELET COUNT 202 10^3/uL (150-450); RED BLOOD COUNT 4.25 10^6/uL (4.35-5.55); RED CELL DISTRIBUTION WIDTH 14.6 % (11.5-14.0); WHITE BLOOD COUNT 8.7 10^3/uL (4.0-10.5)
[2018-06-09 15:50] LABS: APPEARANCE,URINE SLIGHTLY-CLOUDY; BILIRUBIN,URINE NEGATIVE (NEGATIVE); GLUCOSE, URINE NEGATIVE (NEGATIVE); KETONES,URINE TRACE mg/dL (NEGATIVE); LEUKOCYTE ESTERASE,URINE NEGATIVE (NEGATIVE); NITRITE,URINE NEGATIVE (NEGATIVE); PROTEIN,URINE 30 mg/dL (NEGATIVE); URINE SPECIFIC GRAVITY 1.024
[2018-06-09 15:52] LABS: COLOR,URINE YELLOW
[2018-06-09 16:55] LABS: ANION GAP 11 (5-19); BLOOD UREA NITROGEN 17 mg/dL (7-20); CALCIUM 9.1 mg/dL (8.4-10.2); CARBON DIOXIDE 26 mmol/L (22-30); CHLORIDE 105 mmol/L (98-107); GLUCOSE 135 mg/dL (75-110); POTASSIUM 4.9 mmol/L (3.6-5.0); SODIUM 141.9 mmol/L (137-145)
== END ==
LOC: OD 14:45
PROVIDERS: ATTEND Internal Medicine Nephrology
DX: I12.9 Hypertensive chronic kidney disease with stage 1 through stage 4 chronic kidney disease, or unspecified chronic kidney disease (principal); N18.2 Chronic kidney disease, stage 2 (mild); I50.9 Heart failure, unspecified; D64.9 Anemia, unspecified
CPT/HCPCS: 36415; 80048; 81001; 85027

== ENCOUNTER → 2018-06-22 | Outpatient (CLI) | payer MEDICARE, OTHER ==
--- NOTE | 2018-06-23 08:58 | RADIOLOGY REPORT (SQ) ---
EXAM DESCRIPTION: CT ABD/PELVIS ORAL ONLY COMPLETED DATE/TIME: 06/22/2018 4:31 pm REASON FOR STUDY: ABDOMINAL PAIN, DIARRHEA R10.9 UNSPECIFIED ABDOMINAL PAIN R19.7 DIARRHEA, UNSPEC IFIED COMPARISON: CT ABDOMEN PELVIS 06/01/2009 TECHNIQUE: CT scan of the abdomen and pelvis performed without intravenous contrast. Patient drank oral contrast. Images reviewed with lung, soft tissue, and bone windows. Reconstructed coronal and s agittal MPR images reviewed. All images stored on PACS. All CT scanners at this facility use dose modulation, iterative reconstruction, and/or weight based d osing when appropriate to reduce radiation dose to as low as reasonably achievable (ALARA). [facility]: Dose Right [facility]: CareDose [facility]: Dose Right [facility]: Teradose 4D [facility]: [employer] RADIATION DOSE: CT Rad equipment meets quality standard of care and radiation dose reduction techniq ues were employed. CTDIvol: 21.1 mGy. DLP: 1198 mGy-cm.mGy. LIMITATIONS: None. FINDINGS: In the anterior abdominal wall fat, along the superficial aspect of the right rectus muscl e sheath, a well-circumscribed cyst with spotty peripheral rim calcification is present measuring 15 Hounsfield units in density. No intraperitoneal extension. This measures 15 cm transverse by 13 cm AP x 12 cm craniocaudad. Patient has had a ventral hernia repair in this region. This could represe nt a chronic seroma. Low-density mucinous tumor is possible. LOWER CHEST: No significant findings. No nodules or infiltrates. NON-CONTRASTED LIVER, SPLEEN, ADRENALS: Evaluation limited by lack of IV contrast. Stable hemangioma posterior right lobe liver compared to CT from 2008. Spleen, adrenal glands unremarkable PANCREAS: No masses. No peripancreatic inflammatory changes. GALLBLADDER: Surgically absent RIGHT KIDNEY AND URETER: No suspicious masses. Assessment limited by lack of IV contrast. No signif icant calcifications. No hydronephrosis or hydroureter. LEFT KIDNEY AND URETER: No suspicious masses. Assessment limited by lack of IV contrast. No signifi cant calcifications. No hydronephrosis or hydroureter. AORTA AND RETROPERITONEUM: No aneurysm. No retroperitoneal masses or adenopathy. BOWEL AND PERITONEAL CAVITY: Patient drank oral contrast. No CT evidence of bowel obstruction or breezy e intraperitoneal air or fluid. Colonic diverticulosis without CT signs of acute diverticulitis. APPENDIX: Not identified. No right lower quadrant inflammation. PELVIS, BLADDER, AND ABDOMINAL WALL:No abnormal masses. No free fluid. Bladder normal. BONES: No significant findings. OTHER: No other significant finding. IMPRESSION: Well-circumscribed low-density cystic structure in the midline anterior abdominal wall a s above COMMENT: Quality ID # [id number]: Final reports with documentation of one or more dose reduction techniques (e.g., Automated exposure control, adjustment of the mA and/or kV according to patient size, use of iterative reconstruction technique) TECHNICAL DOCUMENTATION: JOB ID: [id number] [employer]- All Rights Reserved Reading location - IP/workstation name: [email or web address]
== END ==
LOC: RAD 13:56
PROVIDERS: ATTEND Internal Medicine
DX: R10.9 Unspecified abdominal pain (principal); R19.7 Diarrhea, unspecified
CPT/HCPCS: 74176